=== PATIENT | male | born 1960 | race Caucasian/White ===

== ENCOUNTER → 2016-11-16 | Outpatient (CLI) | payer MEDICAID, OTHER | LOC: MW.CHIM 10:25 | PROVIDERS: ATTEND Internal Medicine | DX: D64.9 Anemia, unspecified (principal) | CPT/HCPCS: 36415; 83540; 85025 ==

== ENCOUNTER 2019-01-20 12:09 | Emergency (ER) | payer MEDICARE ==
[2019-01-20] MEDS ORDERED: Sodium Chloride 0.9% 2.5 ML Syringe FLUSH PRN (12:11)
[2019-01-20] MEDS ORDERED: Sodium Chloride 0.9% 10 ML Syringe FLUSH PRN (12:11)
--- NOTE | 2019-01-20 12:11 | EDM.PDOC ---
ED HPI GENERAL MEDICAL PROBLEM - General Chief Complaint: Trauma Stated Complaint: AMB Time Seen by Provider: 01/20/19 12:10 Source of Information: Reports: EMS History Limitations: Reports: No Limitations - History of Present Illness INITIAL COMMENTS - FREE TEXT/NARRATIVE: History of present illness: []Patient was walking down the street and tripped falling forward hitting his head and lacerating his forehead and his posterior scalp. It is unclear if he had a loss of consciousness. He brought in by EMS as a trauma alert as they believed he was on blood thinners. Review of systems: As per history of present illness and below otherwise all systems reviewed and negative. Past medical history: As per history of present illness and as reviewed below otherwise noncontributory. Surgical history: As per history of present illness and as reviewed below otherwise noncontributory. Social history: No reported history of drug or alcohol abuse. Family history: As per history of present illness and as reviewed below otherwise noncontributory. Physical exam: General: Well developed, well nourished in NAD HEENT: 1.5 cm superficial forehead laceration, normocephalic, pupils reactive, negative for conjunctival pallor or scleral icterus, mucous membranes moist, throat clear, neck supple, nontender, trachea midline. Lungs: Clear to auscultation, breath sounds equal bilaterally, chest nontender. Heart: S1S2, regular, negative for clicks, rubs, or JVD. Abdomen: NABS, Soft, nondistended, nontender. Negative for masses or hepatosplenomegaly. Negative for costovertebral tenderness. Pelvis: Stable nontender. Genitourinary: Deferred. Rectal: Deferred. Extremities: Atraumatic, negative for cords or calf pain. Neurovascular unremarkable. Neuro: Awake, alert, oriented. Cranial nerves II through XII unremarkable. Cerebellum unremarkable. Motor and sensory unremarkable throughout. Exam nonfocal. Skin:warm and dry Diagnostics: CBC, chemistry, INR, PTT, CT head and neck Therapeutics: Forehead sutured ED Course: Stable Pharmacy confirmed he is not on any blood thinners Impression: Fall with forehead laceration. Prescriptions: None Plan: Take meds as directed, follow up with your primary care physician, return to ER if symptoms worsen or change. Definitive disposition and diagnosis as appropriate pending reevaluation and review of above. Head Pain Score (Numeric/FACES): 3 - Related Data Allergies Allergy/AdvReac Type Severity Reaction Status Date / Time No Known Allergies Allergy Verified 01/20/19 12:27 Home Meds: Home Meds Chlorhexidine Gluconate [Chlorhexidine Gluconate 0.12% Rinse] 15 ml PO BID 01/20 [History] Clobetasol Propionate 1 applicful TP BID 01/20/19 [History] Levothyroxine 75 mcg PO ACBREAKFAST 01/20/19 [History] Zolpidem [Ambien] 5 mg PO BEDTIME PRN 01/20/19 [History] atorvaSTATin [Lipitor] 20 mg PO BEDTIME 01/20/19 [History] oxyCODONE HCl [Oxycodone HCl] 10 mg PO BID PRN 01/20/19 [History] Review of Systems - Review of Systems Review Of Systems: ROS reveals no pertinent complaints other than HPI. ED EXAM, GENERAL - Physical Exam Exam: See Below (The history of present illness) ED TRAUMA PROCEDURES - Laceration/Wound Repair forehead Lac/Wound Length In cm: 1.5 Appearance: Subcutaneous Distal NVT: Neuro & Vascular Intact Local Anesthesia - Lidocaine (Xylocaine): 1% Plain Local Anesthetic Volume: 2cc Skin Prep: Chlorhexidine (Hibiciens) Suture Size: 4-0 Suture Type: Nylon Drain Placement: No Sterile Dressing Applied: Nurse Complications: No Course - Vital Signs Last Recorded V/S: Last Vital Signs Temp 97.4 F 01/20/19 12:09 Pulse 111 H 01/20/19 12:09 Resp 18 01/20/19 12:09 BP 152/112 H 01/20/19 12:09 Pulse Ox 92 L 01/20/19 12:09 - Orders/Labs/Meds Orders: Active Orders 24 hr Category Date Time Status Admission Status [Patient Status] [ADT] Stat ADT 01/20/19 13:06 Active Sodium Chloride 0.9% [Saline Flush] Med 01/20/19 12:11 Active 10 ml FLUSH ASDIRECTED PRN Sodium Chloride 0.9% [Saline Flush] Med 01/20/19 12:11 Active 2.5 ml FLUSH ASDIRECTED PRN Saline Lock Insert [OM.PC] Stat Oth 01/20/19 12:11 Ordered Medication Orders Sodium Chloride (Saline Flush) 10 ml FLUSH ASDIRECTED PRN PRN Reason: Keep Vein Open Sodium Chloride (Saline Flush) 2.5 ml FLUSH ASDIRECTED PRN PRN Reason: Keep Vein Open Labs: Laboratory Tests 01/20/19 01/20/19 01/20/19 Range/Units 12:37 12:37 12:37 WBC 4.37 (4.0-11.0) K/uL RBC 3.65 L (4.50-5.90) M/uL Hgb 12.7 L (13.0-17.0) g/dL Hct 38.1 (38.0-50.0) % MCV 104.4 H (80.0-98.0) fL MCH 34.8 H (27.0-32.0) pg MCHC 33.3 (31.0-37.0) g/dL RDW Std Deviation 48.7 (28.0-62.0) fl RDW Coeff of Luisito 13 (11.0-15.0) % Plt Count 178 (150-400) K/uL MPV 9.00 (7.40-12.00) fL Neut % (Auto) 37.3 L (48.0-80.0) % Lymph % (Auto) 55.4 H (16.0-40.0) % Cavalier % (Auto) 5.9 (0.0-15.0) % Eos % (Auto) 0.5 (0.0-7.0) % Baso % (Auto) 0.9 (0.0-1.5) % Neut # (Auto) 1.6 (1.4-5.7) K/uL Lymph # (Auto) 2.4 (0.6-2.4) K/uL Cavalier # (Auto) 0.3 (0.0-0.8) K/uL Eos # (Auto) 0.0 (0.0-0.7) K/uL Baso # (Auto) 0.0 (0.0-0.1) K/uL Nucleated RBC % 0.0 /100WBC Nucleated RBCs # 0 K/uL INR 1.08 APTT 28.9 (18.6-31.3) SEC Sodium 140 (136-148) mmol/L Potassium 3.6 (3.5-5.1) mmol/L Chloride 98 (98-107) mmol/L Carbon Dioxide 26.0 (21.0-32.0) mmol/L BUN 16 (7.0-18.0) mg/dL Creatinine 0.9 (0.8-1.3) mg/dL Est Cr Clr Drug Dosing 85.05 mL/min Estimated GFR (MDRD) > 60.0 ml/min Glucose 100 (74-106) mg/dL Calcium 9.4 (8.5-10.1) mg/dL Total Bilirubin 0.5 (0.2-1.0) mg/dL AST 186 H (15-37) IU/L ALT 117 H (14-63) IU/L Alkaline Phosphatase 91 (46-116) U/L Total Protein 8.0 (6.4-8.2) g/dL Albumin 4.0 (3.4-5.0) g/dL Globulin 4.0 (2.6-4.0) g/dL Albumin/Globulin Ratio 1.0 (0.9-1.6) Meds: Medications Generic Name Dose Route Start Last Admin Trade Name Frejeanie PRN Reason Stop Dose Admin Sodium Chloride 10 ml 01/20/19 12:11 Saline Flush FLUSH ASDIRECTED PRN Keep Vein Open Sodium Chloride 2.5 ml 01/20/19 12:11 Saline Flush FLUSH ASDIRECTED PRN Keep Vein Open Discontinued Medications Generic Name Dose Route Start Last Admin Trade Name Frejeanie PRN Reason Stop Dose Admin Bacitracin 1 dose 01/20/19 12:41 01/20/19 12:50 Bacitracin Oint 1 Gm TOP 01/20/19 12:42 1 dose ONETIME ONE Administration Bacitracin Confirm 01/20/19 12:42 01/20/19 12:50 Bacitracin Oint 1 Gm Administered 01/20/19 12:43 Not Given Dose 1 dose .ROUTE .STK-MED ONE Lidocaine HCl Confirm 01/20/19 12:36 01/20/19 12:51 Xylocaine-Mpf 1% Administered 01/20/19 12:37 Not Given Dose 10 mls @ as directed .ROUTE .STK-MED ONE Lidocaine HCl 5 ml 01/20/19 12:35 01/20/19 12:51 Xylocaine-Mpf 1% INJECT 01/20/19 12:36 5 ml ONETIME ONE Administration Departure - Departure Time of Disposition: 13:51 Disposition: Home, Self-Care 01 Condition: Good Clinical Impression: Fall Qualifiers: Encounter type: initial encounter Qualified Code(s): W19.XXXA - Unspecified fall, initial encounter Forehead laceration Qualifiers: Encounter type: initial encounter Qualified Code(s): S01.81XA - Laceration without foreign body of other part of head, initial encounter Scalp laceration Qualifiers: Encounter type: initial encounter Qualified Code(s): S01.01XA - Laceration without foreign body of scalp, initial encounter - Discharge Information *PRESCRIPTION DRUG MONITORING PROGRAM REVIEWED*: No *COPY OF PRESCRIPTION DRUG MONITORING REPORT IN PATIENT ERIC: No Referrals: PCP,Unknown [Primary Care Provider] - Forms: ED Department Discharge Additional Instructions: The following information is given to patients seen in the emergency department who are being discharged to home. This information is to outline your options for follow-up care. We provide all patients seen in our emergency department with a follow-up referral. The need for follow-up, as well as the timing and circumstances, are variable depending upon the specifics of your emergency department visit. If you don't have a primary care physician on staff, we will provide you with a referral. We always advise you to contact your personal physician following an emergency department visit to inform them of the circumstance of the visit and for follow-up with them and/or the need for any referrals to a consulting specialist. The emergency department will also refer you to a specialist when appropriate. This referral assures that you have the opportunity for follow-up care with a specialist. All of these measure are taken in an effort to provide you with optimal care, which includes your follow-up. Under all circumstances we always encourage you to contact your private physician who remains a resource for coordinating your care. When calling for follow-up care, please make the office aware that this follow-up is from your recent emergency room visit. If for any reason you are refused follow-up, please contact the [facility] Emergency Department at and asked to speak to the emergency department charge nurse. Take meds as directed, follow up with your primary care physician, return to ER if symptoms worsen or change. [facility] [address] [place] [id number] - My Orders Last 24 Hours: My Active Orders 01/20/19 12:11 Sodium Chloride 0.9% [Saline Flush] 10 ml FLUSH ASDIRECTED PRN Sodium Chloride 0.9% [Saline Flush] 2.5 ml FLUSH ASDIRECTED PRN Saline Lock Insert [OM.PC] Stat 01/20/19 13:06 Admission Status [Patient Status] [ADT] Stat - Assessment/Plan Last 24 Hours: My Active Orders 01/20/19 12:11 Sodium Chloride 0.9% [Saline Flush] 10 ml FLUSH ASDIRECTED PRN Sodium Chloride 0.9% [Saline Flush] 2.5 ml FLUSH ASDIRECTED PRN Saline Lock Insert [OM.PC] Stat 01/20/19 13:06 Admission Status [Patient Status] [ADT] Stat
[2019-01-20] MEDS ORDERED: Bacitracin Oint 1 GM U/D Packet TOP ONE (12:41)
[2019-01-20] MEDS ORDERED: Bacitracin Oint 1 GM U/D Packet ONE (12:42)
[2019-01-20 12:44] VITALS: BP 152/112
--- NOTE | 2019-01-20 13:23 | CT ---
INDICATION: Trauma, fall and hit head, currently on blood thinners TECHNIQUE: CT head without contrast. COMPARISON: None available FINDINGS: The ventricles are prominent, yet in proportion to the cortical sulci consistent with generalized cerebral atrophy. Punctate areas of decreased attenuation are seen bilaterally which may represent lacunar infarcts. There is soft tissue swelling and small subgaleal hematoma over the right frontal bone. Negative for underlying acute intracranial abnormality including hemorrhage. No displaced skull fracture is seen. Negative for extra-axial fluid collection or midline shift. The basal cisterns are intact. There is minimal mucosal thickening of the ethmoid sinuses. The remainder of the visualized paranasal sinuses and mastoid air cells are clear. IMPRESSION: 1. Soft tissue swelling with a small subgaleal hematoma over the right frontal bone. Negative for underlying acute intracranial abnormality. 2. Mild generalized cerebral atrophy. Dictated by Deborah Munroe MD @ 01/20/2019 1:20:55 PM Please note that all CT scans at this facility use dose modulation, iterative reconstruction, and/or weight-based dosing when appropriate to reduce radiation dose to as low as reasonably achievable. Dictated by: Deborah Munroe MD @ 01/20/2019 13:21:09 (Electronically Signed)
--- NOTE | 2019-01-20 13:27 | CT ---
INDICATION: Fall, trauma, neck pain TECHNIQUE: CT cervical spine without contrast. COMPARISON: None available FINDINGS: There is mild straightening and slight reversal of the normal cervical lordosis, most pronounced within the lower cervical spine. This likely relates to patient positioning or muscle spasm. The vertebral body heights are otherwise maintained in good alignment. The facets are properly aligned. Negative for acute fracture. The prevertebral soft tissues are within normal limits. There is disc space narrowing at the C5-C6, C6-C7 and C7-T1 level. Anterior osteophytes are present throughout. Facet arthropathy is also present throughout, worst at the C3-C4 level where there is moderate bilateral neural foraminal narrowing. There are postsurgical changes are present along the right mandible. Biapical scarring is present. IMPRESSION: 1. Negative for acute fracture. 2. Multilevel degenerative spondylosis. Dictated by Deborah Munroe MD @ 01/20/2019 1:26:50 PM Please note that all CT scans at this facility use dose modulation, iterative reconstruction, and/or weight-based dosing when appropriate to reduce radiation dose to as low as reasonably achievable. Dictated by: Deborah Munroe MD @ 01/20/2019 13:27:01 (Electronically Signed)
[2019-01-20 13:30] LABS: CHLORIDE,CL 98 mmol/L (98-107); SODIUM,NA 140 mmol/L (136-148)
== END 2019-01-20 14:10 | disposition home or self-care (01) ==
LOC: MW.ED 12:09
DX: S01.81XA Laceration without foreign body of other part of head, initial encounter (principal); S01.01XA Laceration without foreign body of scalp, initial encounter; Z79.899 Other long term (current) drug therapy; W01.0XXA Fall on same level from slipping, tripping and stumbling without subsequent striking against object, initial encounter
CPT/HCPCS: 12011; 36415; 70450; 72125; 80053; 85025; 85610; 85730; 99284; J2001; 99283

== ENCOUNTER 2021-10-29 20:33 | Emergency (ER) | payer MEDICARE ==
[2021-10-29] MEDS ORDERED: Lactated Ringers 1,000 ML IV STA (22:49)
[2021-10-29 23:57] VITALS: BP 110/75; PULSE 76
== END 2021-10-30 00:10 | disposition home or self-care (01) ==
LOC: MW.ED 20:33
DX: K94.23 Gastrostomy malfunction (principal); E78.00 Pure hypercholesterolemia, unspecified; I10 Essential (primary) hypertension; Z79.899 Other long term (current) drug therapy
CPT/HCPCS: 43762; 74018; 99283; J7120; 99282

== ENCOUNTER 2022-02-05 13:24 | Inpatient (IN) | payer MEDICARE ==
[2022-02-05] MEDS ORDERED: Sodium Chloride 0.9% 1,000 ML IV ONE (13:42)
[2022-02-05 14:39] LABS: BLOOD UREA NITROGEN,BUN 22 mg/dL (7.0-18.0); CARBON DIOXIDE,CO2 27.8 mmol/L (21.0-32.0); CHLORIDE,CL 101 mmol/L (98-107); GLUCOSE RANDOM 93 mg/dL (74-106); POTASSIUM,K 3.2 mmol/L (3.5-5.1); SODIUM,NA 135 mmol/L (136-148)
[2022-02-05 14:45] LABS: ESTIMATED GFR > 60.0 ml/min
[2022-02-05] MEDS ORDERED: Magnesium Oxide 400 MG Tab PO ONE (14:53)
[2022-02-05] MEDS ORDERED: Potassium Chloride 20 MEQ Tab.ER PO ONE (14:53)
[2022-02-05] MEDS ORDERED: oxyCODONE 5 MG Tab PO ONE (16:45)
[2022-02-05] MEDS ORDERED: Ondansetron 4 MG Tab.DIS PO PRN (18:06)
[2022-02-05] MEDS ORDERED: Docusate Sodium 100 MG Cap PO PRN (18:06)
[2022-02-05] MEDS ORDERED: Pantoprazole 40 MG in Sodium Chloride 0.9% 10 ML IVPUSH SCH (18:30)
[2022-02-05] MEDS: atorvaSTATin 20 MG Tab PO SCH (21:47)
[2022-02-05] MEDS ORDERED: Docusate Sodium Liquid 100 MG/10 ML UD Cup PO PRN (21:58)
[2022-02-05] MEDS: Pantoprazole 40 MG in Sodium Chloride 0.9% 10 ML IVPUSH SCH (22:41)
[2022-02-06] MEDS: Acetaminophen 325 MG Tab PO PRN ×2 (00:36→21:44)
[2022-02-06 06:58] LABS: BLOOD UREA NITROGEN,BUN 21 mg/dL (7.0-18.0); CARBON DIOXIDE,CO2 25.4 mmol/L (21.0-32.0); CHLORIDE,CL 102 mmol/L (98-107); GLUCOSE RANDOM 97 mg/dL (74-106); POTASSIUM,K 3.8 mmol/L (3.5-5.1); SODIUM,NA 135 mmol/L (136-148)
[2022-02-06 07:00] LABS: ESTIMATED GFR > 60.0 ml/min
[2022-02-06] MEDS: Levothyroxine 75 MCG Tab PO SCH (07:02)
[2022-02-06] MEDS: Lactated Ringers 1,000 ML IV SCH ×2 (09:45→21:22)
[2022-02-06] MEDS ORDERED: oxyCODONE 5 MG Tab PO PRN (10:15)
[2022-02-06] MEDS ORDERED: Magnesium Sulfate/Water 2 GM in Premix Bag 1 BAG IV ONE (11:30)
[2022-02-06] MEDS: Piperacillin/Tazobactam 3.375 GM in Sodium Chloride 0.9% 50 ML IV SCH ×2 (13:20→21:15)
[2022-02-06] MEDS: oxyCODONE 5 MG Tab PO PRN (18:15)
[2022-02-06] MEDS: Enoxaparin 40 MG/0.4 ML Syringe SUBCUT SCH (18:15)
[2022-02-06] MEDS: Pantoprazole 40 MG in Sodium Chloride 0.9% 10 ML IVPUSH SCH (21:16)
[2022-02-06] MEDS: atorvaSTATin 20 MG Tab PO SCH (21:16)
[2022-02-07] MEDS: Piperacillin/Tazobactam 3.375 GM in Sodium Chloride 0.9% 50 ML IV SCH ×3 (03:48→20:55)
[2022-02-07 05:58] LABS: BLOOD UREA NITROGEN,BUN 19 mg/dL (7.0-18.0); CARBON DIOXIDE,CO2 26.8 mmol/L (21.0-32.0); CHLORIDE,CL 103 mmol/L (98-107); GLUCOSE RANDOM 100 mg/dL (74-106); POTASSIUM,K 3.4 mmol/L (3.5-5.1); SODIUM,NA 137 mmol/L (136-148)
[2022-02-07 06:14] LABS: ESTIMATED GFR > 60.0 ml/min
[2022-02-07] MEDS: Levothyroxine 75 MCG Tab PO SCH (08:42)
[2022-02-07] MEDS: oxyCODONE 5 MG Tab PO PRN ×3 (08:43→21:53)
[2022-02-07] MEDS: Lactated Ringers 1,000 ML IV SCH ×2 (10:47→17:27)
[2022-02-07] MEDS ORDERED: Magnesium Sulfate/Water 2 GM in Premix Bag 1 BAG IV ONE (10:52)
[2022-02-07] MEDS ORDERED: Potassium Chloride 40 MEQ in Dextrose 5%-Lactated Ringers 1,000 ML IV ONE (11:00)
[2022-02-07] MEDS ORDERED: Iron Sucrose Complex 100 MG in Sodium Chloride 0.9% 100 ML IV ONE (11:15)
[2022-02-07] MEDS: Pantoprazole 40 MG in Sodium Chloride 0.9% 10 ML IVPUSH SCH (21:03)
[2022-02-07] MEDS: Enoxaparin 40 MG/0.4 ML Syringe SUBCUT SCH (21:03)
[2022-02-07] MEDS: atorvaSTATin 20 MG Tab PO SCH (21:04)
[2022-02-08] MEDS: oxyCODONE 5 MG Tab PO PRN ×3 (03:02→18:40)
[2022-02-08] MEDS: Lactated Ringers 1,000 ML IV SCH ×2 (03:09→18:40)
[2022-02-08] MEDS: Piperacillin/Tazobactam 3.375 GM in Sodium Chloride 0.9% 50 ML IV SCH ×3 (04:29→21:25)
[2022-02-08] MEDS: Levothyroxine 75 MCG Tab PO SCH (07:44)
[2022-02-08 07:58] LABS: BLOOD UREA NITROGEN,BUN 18 mg/dL (7.0-18.0); CARBON DIOXIDE,CO2 27.9 mmol/L (21.0-32.0); CHLORIDE,CL 101 mmol/L (98-107); GLUCOSE RANDOM 72 mg/dL (74-106); POTASSIUM,K 3.9 mmol/L (3.5-5.1); SODIUM,NA 134 mmol/L (136-148)
[2022-02-08 08:01] LABS: ESTIMATED GFR > 60.0 ml/min
[2022-02-08] MEDS ORDERED: Magnesium Sulfate/Water 2 GM/50 ML Premix Bag IV ONE (15:19)
[2022-02-08] MEDS ORDERED: Magnesium Sulfate/Water 2 GM in Premix Bag 1 BAG IV ONE (15:30)
[2022-02-08] MEDS: atorvaSTATin 20 MG Tab PO SCH (21:25)
[2022-02-08] MEDS: Pantoprazole 40 MG in Sodium Chloride 0.9% 10 ML IVPUSH SCH (21:25)
[2022-02-08] MEDS: Enoxaparin 40 MG/0.4 ML Syringe SUBCUT SCH (21:25)
[2022-02-09] MEDS: oxyCODONE 5 MG Tab PO PRN ×2 (00:48→06:44)
[2022-02-09] MEDS: Lactated Ringers 1,000 ML IV SCH ×2 (03:06→10:39)
[2022-02-09] MEDS: Piperacillin/Tazobactam 3.375 GM in Sodium Chloride 0.9% 50 ML IV SCH ×3 (04:23→19:54)
[2022-02-09] MEDS: Levothyroxine 75 MCG Tab PO SCH (06:43)
[2022-02-09 07:07] LABS: BLOOD UREA NITROGEN,BUN 17 mg/dL (7.0-18.0); CARBON DIOXIDE,CO2 26.1 mmol/L (21.0-32.0); CHLORIDE,CL 102 mmol/L (98-107); GLUCOSE RANDOM 87 mg/dL (74-106); POTASSIUM,K 3.4 mmol/L (3.5-5.1); SODIUM,NA 136 mmol/L (136-148)
[2022-02-09 07:09] LABS: ESTIMATED GFR > 60.0 ml/min
[2022-02-09] MEDS ORDERED: Magnesium Sulfate/Water 2 GM in Premix Bag 1 BAG IV ONE (08:06)
[2022-02-09] MEDS ORDERED: Potassium Chloride 10% 20 MEQ/15 ML Soln 30 ML UD Cup PO ONE (08:06)
[2022-02-09] MEDS ORDERED: Sodium Chloride 0.9% 10 ML Syringe FLUSH PRN (08:08)
[2022-02-09] MEDS ORDERED: Sodium Chloride 0.9% 2.5 ML Syringe FLUSH PRN (08:08)
[2022-02-09] MEDS ORDERED: Potassium Chloride 10% 20 MEQ/15 ML Soln 30 ML UD Cup GTUBE ONE (10:30)
[2022-02-09] MEDS ORDERED: Acetaminophen 325 MG/10.15 ML ML GTUBE PRN (11:02)
[2022-02-09] MEDS: oxyCODONE 5 MG/5 ML Cup GTUBE PRN ×2 (12:58→19:54)
[2022-02-09] MEDS: CHLORHEXIDINE GLUCONATE PO SCH ×2 (18:01→20:16)
[2022-02-09] MEDS: Enoxaparin 40 MG/0.4 ML Syringe SUBCUT SCH (20:01)
[2022-02-09] MEDS: atorvaSTATin 20 MG Tab PEGTUBE SCH (20:02)
[2022-02-09] MEDS: Pantoprazole 40 MG in Sodium Chloride 0.9% 10 ML IVPUSH SCH (21:09)
[2022-02-10] MEDS: Morphine 2 MG/ML SYRINGE IVPUSH PRN ×4 (00:46→21:11)
[2022-02-10] MEDS: Lactated Ringers 1,000 ML IV SCH (00:47)
[2022-02-10] MEDS: oxyCODONE 5 MG/5 ML Cup GTUBE PRN ×3 (02:38→18:20)
[2022-02-10] MEDS: Piperacillin/Tazobactam 3.375 GM in Sodium Chloride 0.9% 50 ML IV SCH ×3 (05:31→21:10)
[2022-02-10 07:11] LABS: BLOOD UREA NITROGEN,BUN 17 mg/dL (7.0-18.0); CARBON DIOXIDE,CO2 27.7 mmol/L (21.0-32.0); CHLORIDE,CL 101 mmol/L (98-107); GLUCOSE RANDOM 83 mg/dL (74-106); POTASSIUM,K 3.5 mmol/L (3.5-5.1); SODIUM,NA 135 mmol/L (136-148)
[2022-02-10 07:18] LABS: ESTIMATED GFR > 60.0 ml/min
[2022-02-10] MEDS ORDERED: Levothyroxine 75 MCG Tab GTUBE SCH (07:30)
[2022-02-10] MEDS: Multivitamin Tab SCH (09:02)
[2022-02-10] MEDS: CHLORHEXIDINE GLUCONATE PO SCH ×2 (09:06→21:13)
[2022-02-10] MEDS: atorvaSTATin 20 MG Tab PEGTUBE SCH (21:10)
[2022-02-10] MEDS: Pantoprazole 40 MG in Sodium Chloride 0.9% 10 ML IVPUSH SCH (21:11)
[2022-02-10] MEDS: Enoxaparin 40 MG/0.4 ML Syringe SUBCUT SCH (21:11)
[2022-02-11] MEDS: oxyCODONE 5 MG/5 ML Cup GTUBE PRN ×4 (00:20→21:00)
[2022-02-11] MEDS: Morphine 2 MG/ML SYRINGE IVPUSH PRN ×2 (03:40→16:16)
[2022-02-11] MEDS: Piperacillin/Tazobactam 3.375 GM in Sodium Chloride 0.9% 50 ML IV SCH ×3 (03:47→21:01)
[2022-02-11 06:02] LABS: BLOOD UREA NITROGEN,BUN 14 mg/dL (7.0-18.0); CHLORIDE,CL 102 mmol/L (98-107); GLUCOSE RANDOM 106 mg/dL (74-106); POTASSIUM,K 3.2 mmol/L (3.5-5.1); SODIUM,NA 137 mmol/L (136-148)
[2022-02-11 06:03] LABS: ESTIMATED GFR > 60.0 ml/min
[2022-02-11] MEDS: Levothyroxine 125 MCG Tab PO SCH (06:32)
[2022-02-11] MEDS ORDERED: Magnesium Sulfate/Water 4 GM in Premix Bag 1 BAG IV ONE (08:00)
[2022-02-11] MEDS: Multivitamin Tab SCH (09:23)
[2022-02-11] MEDS: Potassium Chloride 10% 20 MEQ/15 ML Soln 30 ML UD Cup PO SCH ×2 (09:26→21:01)
[2022-02-11] MEDS: CHLORHEXIDINE GLUCONATE PO SCH ×2 (09:26→21:05)
[2022-02-11] MEDS: atorvaSTATin 20 MG Tab PEGTUBE SCH (21:00)
[2022-02-11] MEDS: Enoxaparin 40 MG/0.4 ML Syringe SUBCUT SCH (21:01)
[2022-02-11] MEDS: Pantoprazole 40 MG in Sodium Chloride 0.9% 10 ML IVPUSH SCH (21:01)
[2022-02-12] MEDS: Morphine 2 MG/ML SYRINGE IVPUSH PRN ×2 (02:01→17:07)
[2022-02-12] MEDS: oxyCODONE 5 MG/5 ML Cup GTUBE PRN ×3 (03:02→18:57)
[2022-02-12] MEDS: Piperacillin/Tazobactam 3.375 GM in Sodium Chloride 0.9% 50 ML IV SCH ×3 (04:36→21:31)
[2022-02-12] MEDS ORDERED: oxyCODONE 5 MG/5 ML Cup GTUBE ONE ×2 (05:15→22:22)
[2022-02-12] MEDS: Levothyroxine 125 MCG Tab PO SCH (06:47)
[2022-02-12 07:43] LABS: BLOOD UREA NITROGEN,BUN 10 mg/dL (7.0-18.0); CARBON DIOXIDE,CO2 26.7 mmol/L (21.0-32.0); CHLORIDE,CL 102 mmol/L (98-107); GLUCOSE RANDOM 93 mg/dL (74-106); POTASSIUM,K 4.1 mmol/L (3.5-5.1); SODIUM,NA 136 mmol/L (136-148)
[2022-02-12 07:44] LABS: ESTIMATED GFR > 60.0 ml/min
[2022-02-12] MEDS: Multivitamin Tab SCH (09:25)
[2022-02-12] MEDS: CHLORHEXIDINE GLUCONATE PO SCH ×2 (09:26→21:56)
[2022-02-12] MEDS ORDERED: Sodium Chloride 0.9% 1,000 ML IV ONE (09:45)
[2022-02-12] MEDS: Albuterol/Ipratropium 3.0-0.5 MG/3 ML Neb Soln NEB PRN ×2 (12:23→23:10)
[2022-02-12] MEDS: atorvaSTATin 20 MG Tab PEGTUBE SCH (21:32)
[2022-02-12] MEDS: Pantoprazole 40 MG in Sodium Chloride 0.9% 10 ML IVPUSH SCH (21:32)
[2022-02-12] MEDS: Enoxaparin 40 MG/0.4 ML Syringe SUBCUT SCH (21:32)
[2022-02-13] MEDS: Piperacillin/Tazobactam 3.375 GM in Sodium Chloride 0.9% 50 ML IV SCH ×3 (04:04→21:23)
[2022-02-13] MEDS: Morphine 2 MG/ML SYRINGE IVPUSH PRN ×2 (05:18→14:10)
[2022-02-13] MEDS: Levothyroxine 125 MCG Tab PO SCH (06:52)
[2022-02-13 07:11] LABS: BLOOD UREA NITROGEN,BUN 8 mg/dL (7.0-18.0); CARBON DIOXIDE,CO2 26.5 mmol/L (21.0-32.0); CHLORIDE,CL 101 mmol/L (98-107); GLUCOSE RANDOM 92 mg/dL (74-106); POTASSIUM,K 3.8 mmol/L (3.5-5.1); SODIUM,NA 135 mmol/L (136-148)
[2022-02-13 07:29] LABS: ESTIMATED GFR > 60.0 ml/min
[2022-02-13] MEDS: CHLORHEXIDINE GLUCONATE PO SCH ×2 (09:30→21:25)
[2022-02-13] MEDS: Multivitamin Tab SCH (09:30)
[2022-02-13] MEDS: oxyCODONE 5 MG/5 ML Cup GTUBE PRN ×2 (09:40→19:41)
[2022-02-13] MEDS: Albuterol/Ipratropium 3.0-0.5 MG/3 ML Neb Soln NEB PRN ×4 (10:03→23:14)
[2022-02-13] MEDS ORDERED: Magnesium Sulfate/Water 4 GM in Premix Bag 1 BAG IV ONE (17:28)
[2022-02-13] MEDS ORDERED: Magnesium Oxide 400 MG Tab PO SCH (17:30)
[2022-02-13] MEDS: Pantoprazole 40 MG in Sodium Chloride 0.9% 10 ML IVPUSH SCH (21:18)
[2022-02-13] MEDS: atorvaSTATin 20 MG Tab PEGTUBE SCH (21:25)
[2022-02-13] MEDS: Enoxaparin 40 MG/0.4 ML Syringe SUBCUT SCH (21:25)
[2022-02-14] MEDS: oxyCODONE 5 MG/5 ML Cup GTUBE PRN ×3 (03:44→20:39)
[2022-02-14] MEDS: Albuterol/Ipratropium 3.0-0.5 MG/3 ML Neb Soln NEB PRN ×4 (03:55→19:32)
[2022-02-14] MEDS ORDERED: traZODone 50 MG Tab PO ONE (04:30)
[2022-02-14] MEDS: Piperacillin/Tazobactam 3.375 GM in Sodium Chloride 0.9% 50 ML IV SCH ×3 (05:00→20:27)
[2022-02-14 06:41] LABS: BLOOD UREA NITROGEN,BUN 9 mg/dL (7.0-18.0); CARBON DIOXIDE,CO2 29.1 mmol/L (21.0-32.0); CHLORIDE,CL 98 mmol/L (98-107); GLUCOSE RANDOM 84 mg/dL (74-106); POTASSIUM,K 3.4 mmol/L (3.5-5.1); SODIUM,NA 134 mmol/L (136-148)
[2022-02-14] MEDS: Levothyroxine 125 MCG Tab PO SCH (06:45)
[2022-02-14 06:52] LABS: ESTIMATED GFR > 60.0 ml/min
[2022-02-14] MEDS: Multivitamin Tab SCH (08:26)
[2022-02-14] MEDS: CHLORHEXIDINE GLUCONATE PO SCH ×2 (08:26→22:40)
[2022-02-14] MEDS: Morphine 2 MG/ML SYRINGE IVPUSH PRN ×2 (10:42→22:41)
[2022-02-14] MEDS: Pantoprazole 40 MG in Sodium Chloride 0.9% 10 ML IVPUSH SCH (21:28)
[2022-02-14] MEDS: atorvaSTATin 20 MG Tab PEGTUBE SCH (21:34)
[2022-02-14] MEDS: Enoxaparin 40 MG/0.4 ML Syringe SUBCUT SCH (22:40)
[2022-02-15] MEDS: oxyCODONE 5 MG/5 ML Cup GTUBE PRN ×2 (02:44→09:44)
[2022-02-15] MEDS: traZODone 50 MG Tab PO SCH ×2 (02:44→20:06)
[2022-02-15] MEDS: Piperacillin/Tazobactam 3.375 GM in Sodium Chloride 0.9% 50 ML IV SCH (04:15)
[2022-02-15] MEDS: Levothyroxine 125 MCG Tab PO SCH (06:34)
[2022-02-15 06:44] LABS: BLOOD UREA NITROGEN,BUN 8 mg/dL (7.0-18.0); CARBON DIOXIDE,CO2 28.9 mmol/L (21.0-32.0); GLUCOSE RANDOM 83 mg/dL (74-106)
[2022-02-15 06:52] LABS: CHLORIDE,CL 100 mmol/L (98-107); ESTIMATED GFR > 60.0 ml/min; POTASSIUM,K 3.4 mmol/L (3.5-5.1); SODIUM,NA 135 mmol/L (136-148)
[2022-02-15] MEDS ORDERED: Potassium Chloride 10% 20 MEQ/15 ML Soln 30 ML UD Cup GTUBE ONE (08:05)
[2022-02-15] MEDS: Multivitamin Tab SCH (09:42)
[2022-02-15] MEDS: CHLORHEXIDINE GLUCONATE PO SCH ×2 (09:43→20:06)
[2022-02-15] MEDS ORDERED: ferumoxytoL 510 MG in Sodium Chloride 0.9% 100 ML IV ONE (10:30)
[2022-02-15] MEDS: Morphine 2 MG/ML SYRINGE IVPUSH PRN ×2 (11:27→20:07)
[2022-02-15] MEDS: atorvaSTATin 20 MG Tab PEGTUBE SCH (20:05)
[2022-02-15] MEDS: Albuterol/Ipratropium 3.0-0.5 MG/3 ML Neb Soln NEB PRN (20:09)
[2022-02-15] MEDS: Pantoprazole 40 MG in Sodium Chloride 0.9% 10 ML IVPUSH SCH (22:30)
[2022-02-15] MEDS: Enoxaparin 40 MG/0.4 ML Syringe SUBCUT SCH (22:31)
[2022-02-16] MEDS: oxyCODONE 5 MG/5 ML Cup GTUBE PRN ×4 (00:39→20:47)
[2022-02-16 07:48] LABS: BLOOD UREA NITROGEN,BUN 9 mg/dL (7.0-18.0); CARBON DIOXIDE,CO2 26.6 mmol/L (21.0-32.0); CHLORIDE,CL 101 mmol/L (98-107); GLUCOSE RANDOM 70 mg/dL (74-106); POTASSIUM,K 3.8 mmol/L (3.5-5.1); SODIUM,NA 136 mmol/L (136-148)
[2022-02-16 07:49] LABS: ESTIMATED GFR > 60.0 ml/min
[2022-02-16] MEDS ORDERED: Magnesium Sulfate/Water 2 GM in Premix Bag 1 BAG IV ONE (08:00)
[2022-02-16] MEDS: Levothyroxine 125 MCG Tab PO SCH (08:15)
[2022-02-16] MEDS: Multivitamin Tab SCH (08:15)
[2022-02-16] MEDS: CHLORHEXIDINE GLUCONATE PO SCH ×2 (08:16→20:47)
[2022-02-16] MEDS: Albuterol/Ipratropium 3.0-0.5 MG/3 ML Neb Soln NEB PRN ×2 (08:46→20:47)
[2022-02-16] MEDS: Enoxaparin 40 MG/0.4 ML Syringe SUBCUT SCH (20:47)
[2022-02-16] MEDS: traZODone 50 MG Tab PO SCH (20:47)
[2022-02-16] MEDS: atorvaSTATin 20 MG Tab PEGTUBE SCH (20:47)
[2022-02-16] MEDS: Pantoprazole 40 MG in Sodium Chloride 0.9% 10 ML IVPUSH SCH (21:06)
[2022-02-16] MEDS: Morphine 2 MG/ML SYRINGE IVPUSH PRN (23:59)
[2022-02-17] MEDS: oxyCODONE 5 MG/5 ML Cup GTUBE PRN ×4 (04:08→21:17)
[2022-02-17] MEDS: Albuterol/Ipratropium 3.0-0.5 MG/3 ML Neb Soln NEB PRN ×4 (04:19→21:17)
[2022-02-17] MEDS: Morphine 2 MG/ML SYRINGE IVPUSH PRN (06:46)
[2022-02-17] MEDS: Levothyroxine 125 MCG Tab PO SCH (06:47)
[2022-02-17 07:20] LABS: BLOOD UREA NITROGEN,BUN 8 mg/dL (7.0-18.0); CARBON DIOXIDE,CO2 29.4 mmol/L (21.0-32.0); CHLORIDE,CL 101 mmol/L (98-107); GLUCOSE RANDOM 90 mg/dL (74-106); POTASSIUM,K 3.6 mmol/L (3.5-5.1); SODIUM,NA 135 mmol/L (136-148)
[2022-02-17 07:21] LABS: ESTIMATED GFR > 60.0 ml/min
[2022-02-17] MEDS ORDERED: Magnesium Sulfate/Water 2 GM in Premix Bag 1 BAG IV ONE (07:58)
[2022-02-17] MEDS: Multivitamin Tab SCH (08:54)
[2022-02-17] MEDS: CHLORHEXIDINE GLUCONATE PO SCH ×2 (08:55→21:18)
[2022-02-17] MEDS: traZODone 50 MG Tab PO SCH (21:16)
[2022-02-17] MEDS: atorvaSTATin 20 MG Tab PEGTUBE SCH (21:16)
[2022-02-17] MEDS: Pantoprazole 40 MG in Sodium Chloride 0.9% 10 ML IVPUSH SCH (21:17)
[2022-02-17] MEDS: Enoxaparin 40 MG/0.4 ML Syringe SUBCUT SCH (21:17)
[2022-02-18] MEDS: Albuterol/Ipratropium 3.0-0.5 MG/3 ML Neb Soln NEB PRN ×3 (04:02→19:24)
[2022-02-18] MEDS: oxyCODONE 5 MG/5 ML Cup GTUBE PRN ×4 (04:02→20:45)
[2022-02-18] MEDS: Levothyroxine 125 MCG Tab PO SCH (06:46)
[2022-02-18 07:13] LABS: BLOOD UREA NITROGEN,BUN 9 mg/dL (7.0-18.0); CARBON DIOXIDE,CO2 31.1 mmol/L (21.0-32.0); CHLORIDE,CL 100 mmol/L (98-107); GLUCOSE RANDOM 85 mg/dL (74-106); POTASSIUM,K 3.5 mmol/L (3.5-5.1); SODIUM,NA 135 mmol/L (136-148)
[2022-02-18 07:18] LABS: ESTIMATED GFR > 60.0 ml/min
[2022-02-18] MEDS ORDERED: Magnesium Sulfate/Water 2 GM in Premix Bag 1 BAG IV ONE (07:56)
[2022-02-18] MEDS: Magnesium Oxide 400 MG Tab PO SCH (09:18)
[2022-02-18] MEDS: Multivitamin Tab SCH (09:18)
[2022-02-18] MEDS: CHLORHEXIDINE GLUCONATE PO SCH ×2 (09:19→20:53)
[2022-02-18] MEDS ORDERED: Acetaminophen 325 MG/10.15 ML ML GTUBE PRN (10:24)
[2022-02-18] MEDS: traZODone 50 MG Tab PO SCH (20:46)
[2022-02-18] MEDS: atorvaSTATin 20 MG Tab PEGTUBE SCH (20:47)
[2022-02-18] MEDS: Enoxaparin 40 MG/0.4 ML Syringe SUBCUT SCH (20:49)
[2022-02-18] MEDS: Pantoprazole 40 MG in Sodium Chloride 0.9% 10 ML IVPUSH SCH ×2 (20:50→21:00)
[2022-02-19] MEDS: oxyCODONE 5 MG/5 ML Cup GTUBE PRN ×5 (01:32→19:03)
[2022-02-19] MEDS: Albuterol/Ipratropium 3.0-0.5 MG/3 ML Neb Soln NEB PRN ×4 (02:55→19:04)
[2022-02-19] MEDS: Levothyroxine 125 MCG Tab PO SCH ×2 (06:09→09:17)
[2022-02-19 06:13] LABS: BLOOD UREA NITROGEN,BUN 9 mg/dL (7.0-18.0); CARBON DIOXIDE,CO2 31.2 mmol/L (21.0-32.0); CHLORIDE,CL 100 mmol/L (98-107); GLUCOSE RANDOM 81 mg/dL (74-106); POTASSIUM,K 3.5 mmol/L (3.5-5.1); SODIUM,NA 136 mmol/L (136-148)
[2022-02-19 06:15] LABS: ESTIMATED GFR > 60.0 ml/min
[2022-02-19] MEDS: Magnesium Oxide 400 MG Tab PO SCH (09:18)
[2022-02-19] MEDS: Multivitamin Tab SCH (09:18)
[2022-02-19] MEDS: CHLORHEXIDINE GLUCONATE PO SCH ×2 (09:19→21:21)
[2022-02-19] MEDS: Enoxaparin 40 MG/0.4 ML Syringe SUBCUT SCH (21:21)
[2022-02-19] MEDS: atorvaSTATin 20 MG Tab PEGTUBE SCH (21:21)
[2022-02-19] MEDS: traZODone 50 MG Tab PO SCH (21:22)
[2022-02-19] MEDS: Pantoprazole 40 MG in Sodium Chloride 0.9% 10 ML IVPUSH SCH (21:22)
[2022-02-20] MEDS: oxyCODONE 5 MG/5 ML Cup GTUBE PRN ×5 (00:11→19:00)
[2022-02-20] MEDS: Levothyroxine 125 MCG Tab PO SCH (06:49)
[2022-02-20 08:00] LABS: BLOOD UREA NITROGEN,BUN 11 mg/dL (7.0-18.0); CARBON DIOXIDE,CO2 31.1 mmol/L (21.0-32.0); CHLORIDE,CL 99 mmol/L (98-107); GLUCOSE RANDOM 92 mg/dL (74-106); POTASSIUM,K 3.7 mmol/L (3.5-5.1); SODIUM,NA 136 mmol/L (136-148)
[2022-02-20 08:02] LABS: ESTIMATED GFR > 60.0 ml/min
[2022-02-20] MEDS: Albuterol/Ipratropium 3.0-0.5 MG/3 ML Neb Soln NEB PRN ×2 (10:05→19:19)
[2022-02-20] MEDS: CHLORHEXIDINE GLUCONATE PO SCH ×2 (10:05→21:12)
[2022-02-20] MEDS: Multivitamin Tab SCH (10:05)
[2022-02-20] MEDS: Magnesium Oxide 400 MG Tab PO SCH (10:05)
[2022-02-20] MEDS ORDERED: Magnesium Sulfate/Water 2 GM in Premix Bag 1 BAG IV ONE (19:53)
[2022-02-20] MEDS: traZODone 50 MG Tab PO SCH (21:11)
[2022-02-20] MEDS: atorvaSTATin 20 MG Tab PEGTUBE SCH (21:11)
[2022-02-20] MEDS: Enoxaparin 40 MG/0.4 ML Syringe SUBCUT SCH (21:11)
[2022-02-20] MEDS: Pantoprazole 40 MG in Sodium Chloride 0.9% 10 ML IVPUSH SCH (21:12)
[2022-02-21] MEDS: oxyCODONE 5 MG/5 ML Cup GTUBE PRN ×4 (05:34→21:05)
[2022-02-21 07:41] LABS: BLOOD UREA NITROGEN,BUN 12 mg/dL (7.0-18.0); CARBON DIOXIDE,CO2 33.3 mmol/L (21.0-32.0); CHLORIDE,CL 99 mmol/L (98-107); GLUCOSE RANDOM 93 mg/dL (74-106); POTASSIUM,K 3.7 mmol/L (3.5-5.1); SODIUM,NA 134 mmol/L (136-148)
[2022-02-21] MEDS: Levothyroxine 125 MCG Tab PO SCH (07:46)
[2022-02-21 07:47] LABS: ESTIMATED GFR > 60.0 ml/min
[2022-02-21] MEDS: CHLORHEXIDINE GLUCONATE PO SCH ×2 (08:00→21:21)
[2022-02-21] MEDS: Multivitamin Tab SCH (08:00)
[2022-02-21] MEDS: Magnesium Oxide 400 MG Tab PO SCH (08:00)
[2022-02-21] MEDS: Albuterol/Ipratropium 3.0-0.5 MG/3 ML Neb Soln NEB PRN ×2 (15:05→20:49)
[2022-02-21] MEDS: traZODone 50 MG Tab PO SCH (21:04)
[2022-02-21] MEDS: Enoxaparin 40 MG/0.4 ML Syringe SUBCUT SCH (21:04)
[2022-02-21] MEDS: atorvaSTATin 20 MG Tab PEGTUBE SCH (21:05)
[2022-02-21] MEDS: Pantoprazole 40 MG in Sodium Chloride 0.9% 10 ML IVPUSH SCH (21:05)
[2022-02-22] MEDS: oxyCODONE 5 MG/5 ML Cup GTUBE PRN ×4 (06:12→23:50)
[2022-02-22] MEDS: Levothyroxine 125 MCG Tab PO SCH (06:29)
[2022-02-22] MEDS: Albuterol/Ipratropium 3.0-0.5 MG/3 ML Neb Soln NEB PRN ×3 (06:34→23:50)
[2022-02-22] MEDS: Magnesium Oxide 400 MG Tab PO SCH (09:22)
[2022-02-22] MEDS: CHLORHEXIDINE GLUCONATE PO SCH ×2 (09:22→21:47)
[2022-02-22] MEDS: Multivitamin Tab SCH (09:22)
[2022-02-22 10:02] LABS: BLOOD UREA NITROGEN,BUN 13 mg/dL (7.0-18.0); CARBON DIOXIDE,CO2 30.3 mmol/L (21.0-32.0); CHLORIDE,CL 98 mmol/L (98-107); GLUCOSE RANDOM 86 mg/dL (74-106); POTASSIUM,K 3.7 mmol/L (3.5-5.1); SODIUM,NA 133 mmol/L (136-148)
[2022-02-22 10:03] LABS: ESTIMATED GFR > 60.0 ml/min
[2022-02-22] MEDS ORDERED: Magnesium Sulfate/Water 4 GM in Premix Bag 1 BAG IV ONE (10:25)
[2022-02-22] MEDS: Docusate Sodium Liquid 100 MG/10 ML UD Cup GTUBE PRN (10:59)
[2022-02-22] MEDS: traZODone 50 MG Tab PO SCH (21:19)
[2022-02-22] MEDS: Enoxaparin 40 MG/0.4 ML Syringe SUBCUT SCH (21:19)
[2022-02-22] MEDS: atorvaSTATin 20 MG Tab PEGTUBE SCH (21:19)
[2022-02-22] MEDS: Pantoprazole 40 MG in Sodium Chloride 0.9% 10 ML IVPUSH SCH (21:20)
[2022-02-23] MEDS: oxyCODONE 5 MG/5 ML Cup GTUBE PRN ×4 (04:17→20:59)
[2022-02-23] MEDS: Levothyroxine 125 MCG Tab PO SCH (06:34)
[2022-02-23 07:51] LABS: BLOOD UREA NITROGEN,BUN 12 mg/dL (7.0-18.0); CARBON DIOXIDE,CO2 32.3 mmol/L (21.0-32.0); CHLORIDE,CL 98 mmol/L (98-107); ESTIMATED GFR > 60.0 ml/min; GLUCOSE RANDOM 88 mg/dL (74-106); POTASSIUM,K 3.5 mmol/L (3.5-5.1); SODIUM,NA 135 mmol/L (136-148)
[2022-02-23] MEDS: CHLORHEXIDINE GLUCONATE PO SCH ×2 (09:01→20:24)
[2022-02-23] MEDS: Multivitamin Tab SCH (09:01)
[2022-02-23] MEDS ORDERED: Iopamidol 755 MG/ML 500 ML Multipack Bottle IVPUSH STA (10:40)
[2022-02-23] MEDS: Piperacillin/Tazobactam 3.375 GM in Sodium Chloride 0.9% 50 ML IV SCH ×3 (11:13→22:37)
[2022-02-23] MEDS: Azithromycin 500 MG in Sodium Chloride 0.9% 250 ML IV SCH (11:58)
[2022-02-23] MEDS ORDERED: Polyethylene Glycol 3350 Powder 17 GM Packet GTUBE SCH (15:45)
[2022-02-23] MEDS: Docusate Sodium Liquid 100 MG/10 ML UD Cup GTUBE PRN (16:02)
[2022-02-23] MEDS: traZODone 50 MG Tab PO SCH (20:23)
[2022-02-23] MEDS: atorvaSTATin 20 MG Tab PEGTUBE SCH (20:24)
[2022-02-23] MEDS: Enoxaparin 40 MG/0.4 ML Syringe SUBCUT SCH (20:24)
[2022-02-23] MEDS: Pantoprazole 40 MG in Sodium Chloride 0.9% 10 ML IVPUSH SCH (22:36)
[2022-02-24] MEDS: oxyCODONE 5 MG/5 ML Cup GTUBE PRN ×6 (01:16→23:04)
[2022-02-24] MEDS: Piperacillin/Tazobactam 3.375 GM in Sodium Chloride 0.9% 50 ML IV SCH ×4 (04:37→22:58)
[2022-02-24] MEDS: Levothyroxine 125 MCG Tab PO SCH (06:40)
[2022-02-24 07:09] LABS: CARBON DIOXIDE,CO2 33.3 mmol/L (21.0-32.0); POTASSIUM,K 3.9 mmol/L (3.5-5.1)
[2022-02-24] MEDS ORDERED: Polyethylene Glycol 3350 Powder 17 GM Packet GTUBE PRN (09:00)
[2022-02-24] MEDS: Multivitamin Tab SCH (09:05)
[2022-02-24] MEDS: Azithromycin 500 MG in Sodium Chloride 0.9% 250 ML IV SCH (09:07)
[2022-02-24] MEDS: CHLORHEXIDINE GLUCONATE PO SCH ×2 (09:08→21:11)
[2022-02-24] MEDS: Albuterol/Ipratropium 3.0-0.5 MG/3 ML Neb Soln NEB PRN (13:49)
[2022-02-24] MEDS: traZODone 50 MG Tab PO SCH (21:10)
[2022-02-24] MEDS: atorvaSTATin 20 MG Tab PEGTUBE SCH (21:10)
[2022-02-24] MEDS: Enoxaparin 40 MG/0.4 ML Syringe SUBCUT SCH (21:10)
[2022-02-24] MEDS: Pantoprazole 40 MG in Sodium Chloride 0.9% 10 ML IVPUSH SCH (21:11)
[2022-02-25] MEDS: Albuterol/Ipratropium 3.0-0.5 MG/3 ML Neb Soln NEB PRN ×4 (00:34→21:49)
[2022-02-25] MEDS: Piperacillin/Tazobactam 3.375 GM in Sodium Chloride 0.9% 50 ML IV SCH ×4 (04:57→22:00)
[2022-02-25] MEDS: Levothyroxine 125 MCG Tab PO SCH (06:31)
[2022-02-25 07:02] LABS: POTASSIUM,K 4.1 mmol/L (3.5-5.1)
[2022-02-25] MEDS ORDERED: Magnesium Sulfate/Water 2 GM in Premix Bag 1 BAG IV ONE (08:15)
[2022-02-25] MEDS: Multivitamin Tab SCH (09:03)
[2022-02-25] MEDS: oxyCODONE 5 MG/5 ML Cup GTUBE PRN ×4 (09:03→22:15)
[2022-02-25] MEDS: CHLORHEXIDINE GLUCONATE PO SCH ×2 (09:07→22:16)
[2022-02-25] MEDS: Azithromycin 500 MG in Sodium Chloride 0.9% 250 ML IV SCH (10:30)
[2022-02-25] MEDS: atorvaSTATin 20 MG Tab PEGTUBE SCH (21:49)
[2022-02-25] MEDS: Enoxaparin 40 MG/0.4 ML Syringe SUBCUT SCH (21:49)
[2022-02-25] MEDS: traZODone 50 MG Tab PO SCH (21:49)
[2022-02-26] MEDS: oxyCODONE 5 MG/5 ML Cup GTUBE PRN ×5 (05:31→22:30)
[2022-02-26] MEDS: Piperacillin/Tazobactam 3.375 GM in Sodium Chloride 0.9% 50 ML IV SCH ×4 (05:31→22:30)
[2022-02-26] MEDS: Albuterol/Ipratropium 3.0-0.5 MG/3 ML Neb Soln NEB PRN (05:32)
[2022-02-26 05:47] LABS: CARBON DIOXIDE,CO2 34.8 mmol/L (21.0-32.0); POTASSIUM,K 4.1 mmol/L (3.5-5.1)
[2022-02-26] MEDS: Levothyroxine 125 MCG Tab PO SCH (07:08)
[2022-02-26] MEDS: Pantoprazole 40 MG Tab.CR SCH (07:08)
[2022-02-26] MEDS: Multivitamin Tab SCH (09:10)
[2022-02-26] MEDS: Azithromycin 500 MG in Sodium Chloride 0.9% 250 ML IV SCH (09:11)
[2022-02-26] MEDS: CHLORHEXIDINE GLUCONATE PO SCH ×2 (09:12→20:59)
[2022-02-26] MEDS: Enoxaparin 40 MG/0.4 ML Syringe SUBCUT SCH (20:58)
[2022-02-26] MEDS: traZODone 50 MG Tab PO SCH (20:59)
[2022-02-26] MEDS: atorvaSTATin 20 MG Tab PEGTUBE SCH (20:59)
[2022-02-27] MEDS: oxyCODONE 5 MG/5 ML Cup GTUBE PRN ×4 (02:34→22:03)
[2022-02-27] MEDS: Piperacillin/Tazobactam 3.375 GM in Sodium Chloride 0.9% 50 ML IV SCH ×4 (05:48→22:00)
[2022-02-27] MEDS: Pantoprazole 40 MG Tab.CR SCH (06:57)
[2022-02-27] MEDS: Levothyroxine 125 MCG Tab PO SCH (06:57)
[2022-02-27] MEDS: Azithromycin 500 MG in Sodium Chloride 0.9% 250 ML IV SCH (08:33)
[2022-02-27] MEDS: Multivitamin Tab SCH (08:33)
[2022-02-27] MEDS: CHLORHEXIDINE GLUCONATE PO SCH ×2 (09:23→21:16)
[2022-02-27] MEDS: atorvaSTATin 20 MG Tab PEGTUBE SCH (21:15)
[2022-02-27] MEDS: traZODone 50 MG Tab PO SCH (21:15)
[2022-02-27] MEDS: Enoxaparin 40 MG/0.4 ML Syringe SUBCUT SCH (21:16)
[2022-02-28] MEDS: oxyCODONE 5 MG/5 ML Cup GTUBE PRN ×6 (02:09→22:53)
[2022-02-28] MEDS: Piperacillin/Tazobactam 3.375 GM in Sodium Chloride 0.9% 50 ML IV SCH ×4 (04:26→22:48)
[2022-02-28] MEDS: Pantoprazole 40 MG Tab.CR SCH (06:30)
[2022-02-28] MEDS: Levothyroxine 125 MCG Tab PO SCH (06:30)
[2022-02-28] MEDS: Multivitamin Tab SCH (08:08)
[2022-02-28] MEDS: Azithromycin 500 MG in Sodium Chloride 0.9% 250 ML IV SCH (08:08)
[2022-02-28] MEDS: CHLORHEXIDINE GLUCONATE PO SCH ×2 (09:43→21:05)
[2022-02-28] MEDS: Albuterol/Ipratropium 3.0-0.5 MG/3 ML Neb Soln NEB PRN (18:53)
[2022-02-28] MEDS: Enoxaparin 40 MG/0.4 ML Syringe SUBCUT SCH (21:04)
[2022-02-28] MEDS: atorvaSTATin 20 MG Tab PEGTUBE SCH (21:05)
[2022-02-28] MEDS: traZODone 50 MG Tab PO SCH (21:05)
[2022-03-01] MEDS: oxyCODONE 5 MG/5 ML Cup GTUBE PRN ×5 (03:02→21:59)
[2022-03-01] MEDS: Piperacillin/Tazobactam 3.375 GM in Sodium Chloride 0.9% 50 ML IV SCH ×2 (04:10→11:21)
[2022-03-01] MEDS: Levothyroxine 125 MCG Tab PO SCH (06:29)
[2022-03-01] MEDS: Pantoprazole 40 MG Tab.CR SCH (06:29)
[2022-03-01] MEDS: CHLORHEXIDINE GLUCONATE PO SCH ×2 (09:46→21:59)
[2022-03-01] MEDS: Albuterol/Ipratropium 3.0-0.5 MG/3 ML Neb Soln NEB PRN ×2 (09:46→21:59)
[2022-03-01] MEDS: Multivitamin Tab SCH (09:46)
[2022-03-01] MEDS: Azithromycin 500 MG in Sodium Chloride 0.9% 250 ML IV SCH (09:46)
[2022-03-01] MEDS: atorvaSTATin 20 MG Tab PEGTUBE SCH (21:59)
[2022-03-01] MEDS: traZODone 50 MG Tab PO SCH (21:59)
[2022-03-01] MEDS: Enoxaparin 40 MG/0.4 ML Syringe SUBCUT SCH (21:59)
[2022-03-02] MEDS: oxyCODONE 5 MG/5 ML Cup GTUBE PRN ×4 (02:10→20:34)
[2022-03-02] MEDS: Pantoprazole 40 MG Tab.CR SCH (06:35)
[2022-03-02] MEDS: Levothyroxine 125 MCG Tab PO SCH (06:35)
[2022-03-02] MEDS ORDERED: Ketorolac 30 MG/ML SDV IVPUSH ONE (10:12)
[2022-03-02] MEDS ORDERED: Ondansetron 4 MG/2 ML SDV IVPUSH PRN (10:13)
[2022-03-02] MEDS: Multivitamin Tab SCH (10:27)
[2022-03-02] MEDS: Gabapentin 100 MG Cap GTUBE SCH ×2 (10:34→20:34)
[2022-03-02] MEDS: CHLORHEXIDINE GLUCONATE PO SCH ×2 (10:40→20:35)
[2022-03-02] MEDS: traZODone 50 MG Tab PO SCH (20:34)
[2022-03-02] MEDS: atorvaSTATin 20 MG Tab PEGTUBE SCH (20:34)
[2022-03-02] MEDS: Enoxaparin 40 MG/0.4 ML Syringe SUBCUT SCH (20:34)
[2022-03-03] MEDS: oxyCODONE 5 MG/5 ML Cup GTUBE PRN ×5 (00:35→22:04)
[2022-03-03] MEDS: Levothyroxine 125 MCG Tab PO SCH (06:45)
[2022-03-03] MEDS: Pantoprazole 40 MG Tab.CR SCH (06:45)
[2022-03-03] MEDS: Gabapentin 100 MG Cap GTUBE SCH ×2 (09:34→20:51)
[2022-03-03] MEDS: Multivitamin Tab SCH (09:34)
[2022-03-03] MEDS: Albuterol/Ipratropium 3.0-0.5 MG/3 ML Neb Soln NEB PRN ×2 (09:35→21:09)
[2022-03-03] MEDS: CHLORHEXIDINE GLUCONATE PO SCH ×2 (10:00→21:01)
[2022-03-03] MEDS: Carbamide Peroxide 6.5% Otic Soln 15 ML Bottle EARBOTH SCH ×2 (11:33→20:52)
[2022-03-03] MEDS: atorvaSTATin 20 MG Tab PEGTUBE SCH (20:51)
[2022-03-03] MEDS: traZODone 50 MG Tab PO SCH (20:51)
[2022-03-03] MEDS: Enoxaparin 40 MG/0.4 ML Syringe SUBCUT SCH (20:51)
[2022-03-04] MEDS: oxyCODONE 5 MG/5 ML Cup GTUBE PRN ×5 (04:10→22:19)
[2022-03-04] MEDS: Pantoprazole 40 MG Tab.CR SCH (06:29)
[2022-03-04] MEDS: Levothyroxine 125 MCG Tab PO SCH (06:29)
[2022-03-04 06:47] LABS: CARBON DIOXIDE,CO2 31.1 mmol/L (21.0-32.0); POTASSIUM,K 4.4 mmol/L (3.5-5.1)
[2022-03-04] MEDS ORDERED: Magnesium Sulfate/Water 2 GM in Premix Bag 1 BAG IV ONE (07:58)
[2022-03-04] MEDS: Multivitamin Tab SCH (09:17)
[2022-03-04] MEDS: Gabapentin 100 MG Cap GTUBE SCH ×2 (09:17→20:53)
[2022-03-04] MEDS: Carbamide Peroxide 6.5% Otic Soln 15 ML Bottle EARBOTH SCH ×2 (09:18→20:55)
[2022-03-04] MEDS: CHLORHEXIDINE GLUCONATE PO SCH ×2 (09:19→20:53)
[2022-03-04] MEDS: Mirtazapine 15 MG Tab PO SCH (20:52)
[2022-03-04] MEDS: traZODone 50 MG Tab PO SCH (20:53)
[2022-03-04] MEDS: Enoxaparin 40 MG/0.4 ML Syringe SUBCUT SCH (20:53)
[2022-03-04] MEDS: atorvaSTATin 20 MG Tab PEGTUBE SCH (20:53)
[2022-03-05] MEDS: oxyCODONE 5 MG/5 ML Cup GTUBE PRN ×4 (04:27→21:05)
[2022-03-05 06:08] LABS: CARBON DIOXIDE,CO2 29.8 mmol/L (21.0-32.0); POTASSIUM,K 4.8 mmol/L (3.5-5.1)
[2022-03-05] MEDS: Levothyroxine 125 MCG Tab PO SCH (06:32)
[2022-03-05] MEDS: Pantoprazole 40 MG Tab.CR SCH (06:32)
[2022-03-05] MEDS: Albuterol/Ipratropium 3.0-0.5 MG/3 ML Neb Soln NEB PRN (09:05)
[2022-03-05] MEDS: Gabapentin 100 MG Cap GTUBE SCH ×2 (09:58→21:04)
[2022-03-05] MEDS: Multivitamin Tab SCH (09:58)
[2022-03-05] MEDS: CHLORHEXIDINE GLUCONATE PO SCH ×2 (09:59→21:05)
[2022-03-05] MEDS: Carbamide Peroxide 6.5% Otic Soln 15 ML Bottle EARBOTH SCH ×2 (12:09→21:03)
[2022-03-05] MEDS: traZODone 50 MG Tab PO SCH (21:04)
[2022-03-05] MEDS: atorvaSTATin 20 MG Tab PEGTUBE SCH (21:04)
[2022-03-05] MEDS: Mirtazapine 15 MG Tab PO SCH (21:05)
[2022-03-05] MEDS: Enoxaparin 40 MG/0.4 ML Syringe SUBCUT SCH (21:07)
[2022-03-06] MEDS: oxyCODONE 5 MG/5 ML Cup GTUBE PRN ×4 (05:04→19:00)
[2022-03-06 08:03] LABS: CARBON DIOXIDE,CO2 29.7 mmol/L (21.0-32.0); POTASSIUM,K 4.7 mmol/L (3.5-5.1)
[2022-03-06] MEDS: Pantoprazole 40 MG Tab.CR SCH (08:16)
[2022-03-06] MEDS: Levothyroxine 125 MCG Tab PO SCH (08:16)
[2022-03-06] MEDS: Gabapentin 100 MG Cap GTUBE SCH ×2 (08:16→21:08)
[2022-03-06] MEDS: Carbamide Peroxide 6.5% Otic Soln 15 ML Bottle EARBOTH SCH ×2 (08:17→21:09)
[2022-03-06] MEDS: Multivitamin Tab SCH (08:17)
[2022-03-06] MEDS: CHLORHEXIDINE GLUCONATE PO SCH ×2 (08:25→21:07)
[2022-03-06] MEDS: Albuterol/Ipratropium 3.0-0.5 MG/3 ML Neb Soln NEB PRN (14:24)
[2022-03-06] MEDS: Enoxaparin 40 MG/0.4 ML Syringe SUBCUT SCH (21:07)
[2022-03-06] MEDS: traZODone 50 MG Tab PO SCH (21:08)
[2022-03-06] MEDS: atorvaSTATin 20 MG Tab PEGTUBE SCH (21:08)
[2022-03-06] MEDS: Mirtazapine 15 MG Tab PO SCH (21:08)
[2022-03-07] MEDS: oxyCODONE 5 MG/5 ML Cup GTUBE PRN ×5 (02:47→21:27)
[2022-03-07] MEDS: Pantoprazole 40 MG Tab.CR SCH (06:55)
[2022-03-07] MEDS: Levothyroxine 125 MCG Tab PO SCH (06:55)
[2022-03-07] MEDS: CHLORHEXIDINE GLUCONATE PO SCH ×2 (08:35→21:28)
[2022-03-07] MEDS: Multivitamin Tab SCH (08:35)
[2022-03-07] MEDS: Carbamide Peroxide 6.5% Otic Soln 15 ML Bottle EARBOTH SCH (08:35)
[2022-03-07] MEDS: Gabapentin 100 MG Cap GTUBE SCH ×2 (08:35→21:27)
[2022-03-07] MEDS: Albuterol/Ipratropium 3.0-0.5 MG/3 ML Neb Soln NEB PRN ×2 (08:35→13:10)
[2022-03-07] MEDS: traZODone 50 MG Tab PO SCH (21:26)
[2022-03-07] MEDS: atorvaSTATin 20 MG Tab PEGTUBE SCH (21:26)
[2022-03-07] MEDS: Enoxaparin 40 MG/0.4 ML Syringe SUBCUT SCH (21:27)
[2022-03-07] MEDS: Mirtazapine 15 MG Tab PO SCH (21:27)
[2022-03-08] MEDS: oxyCODONE 5 MG/5 ML Cup GTUBE PRN ×5 (02:29→21:30)
[2022-03-08] MEDS: Albuterol/Ipratropium 3.0-0.5 MG/3 ML Neb Soln NEB PRN ×2 (02:29→08:55)
[2022-03-08] MEDS: Levothyroxine 125 MCG Tab PO SCH (07:12)
[2022-03-08] MEDS: Pantoprazole 40 MG Tab.CR SCH (07:12)
[2022-03-08] MEDS ORDERED: Mirtazapine 15 MG Tab GTUBE SCH (08:22)
[2022-03-08] MEDS ORDERED: Levothyroxine 125 MCG Tab GTUBE SCH (08:23)
[2022-03-08] MEDS: Gabapentin 100 MG Cap GTUBE SCH ×2 (09:53→21:27)
[2022-03-08] MEDS: Multivitamin Tab SCH (09:53)
[2022-03-08] MEDS: CHLORHEXIDINE GLUCONATE PO SCH ×2 (09:54→21:29)
[2022-03-08] MEDS: Non-Formulary Medication 1 Each GTUBE SCH (18:55)
[2022-03-08] MEDS: Enoxaparin 40 MG/0.4 ML Syringe SUBCUT SCH (21:27)
[2022-03-08] MEDS: atorvaSTATin 20 MG Tab PEGTUBE SCH (21:27)
[2022-03-08] MEDS: Mirtazapine 15 MG Tab GTUBE SCH (21:29)
[2022-03-08] MEDS: traZODone 50 MG Tab PO SCH (21:29)
[2022-03-08] MEDS: Levothyroxine 125 MCG Tab GTUBE SCH (21:30)
[2022-03-09] MEDS: oxyCODONE 5 MG/5 ML Cup GTUBE PRN ×5 (01:31→21:32)
[2022-03-09] MEDS: Non-Formulary Medication 1 Each GTUBE SCH ×2 (03:07→18:44)
[2022-03-09] MEDS: Pantoprazole 40 MG Tab.CR SCH (06:45)
[2022-03-09] MEDS: Gabapentin 100 MG Cap GTUBE SCH ×2 (09:05→21:19)
[2022-03-09] MEDS: CHLORHEXIDINE GLUCONATE PO SCH ×2 (11:03→21:26)
[2022-03-09] MEDS: Multivitamin Tab SCH (11:57)
[2022-03-09] MEDS: Albuterol/Ipratropium 3.0-0.5 MG/3 ML Neb Soln NEB PRN (17:09)
[2022-03-09] MEDS: atorvaSTATin 20 MG Tab PEGTUBE SCH (21:19)
[2022-03-09] MEDS: Mirtazapine 15 MG Tab GTUBE SCH (21:19)
[2022-03-09] MEDS: Levothyroxine 125 MCG Tab GTUBE SCH (21:20)
[2022-03-09] MEDS: traZODone 50 MG Tab PO SCH (21:20)
[2022-03-09] MEDS: Enoxaparin 40 MG/0.4 ML Syringe SUBCUT SCH (21:25)
[2022-03-10] MEDS: oxyCODONE 5 MG/5 ML Cup GTUBE PRN ×4 (02:31→17:22)
[2022-03-10] MEDS: Non-Formulary Medication 1 Each GTUBE SCH ×2 (03:45→18:32)
[2022-03-10] MEDS: Pantoprazole 40 MG Tab.CR SCH (06:44)
[2022-03-10] MEDS: Gabapentin 100 MG Cap GTUBE SCH ×2 (08:56→21:30)
[2022-03-10] MEDS: Multivitamin Tab SCH (08:56)
[2022-03-10] MEDS: CHLORHEXIDINE GLUCONATE PO SCH ×2 (08:56→21:29)
[2022-03-10] MEDS: Albuterol/Ipratropium 3.0-0.5 MG/3 ML Neb Soln NEB PRN ×2 (10:07→18:26)
[2022-03-10] MEDS: Carbamide Peroxide 6.5% Otic Soln 15 ML Bottle EARBOTH SCH ×2 (10:23→21:37)
[2022-03-10] MEDS: Enoxaparin 40 MG/0.4 ML Syringe SUBCUT SCH (21:29)
[2022-03-10] MEDS: Levothyroxine 125 MCG Tab GTUBE SCH (21:31)
[2022-03-10] MEDS: atorvaSTATin 20 MG Tab PEGTUBE SCH (21:31)
[2022-03-10] MEDS: Mirtazapine 15 MG Tab GTUBE SCH (21:31)
[2022-03-11] MEDS: traZODone 50 MG Tab PO SCH (01:50)
[2022-03-11] MEDS: oxyCODONE 5 MG/5 ML Cup GTUBE PRN ×5 (01:50→17:57)
[2022-03-11] MEDS: Albuterol/Ipratropium 3.0-0.5 MG/3 ML Neb Soln NEB PRN ×4 (04:17→21:24)
[2022-03-11] MEDS: Pantoprazole 40 MG Tab.CR SCH ×2 (05:53→06:39)
[2022-03-11] MEDS: Gabapentin 100 MG Cap GTUBE SCH ×2 (09:27→21:24)
[2022-03-11] MEDS: CHLORHEXIDINE GLUCONATE PO SCH ×2 (09:27→21:24)
[2022-03-11] MEDS: Multivitamin Tab SCH (09:27)
[2022-03-11] MEDS: Carbamide Peroxide 6.5% Otic Soln 15 ML Bottle EARBOTH SCH ×2 (09:28→21:27)
[2022-03-11] MEDS: [UNRECOGNIZED DRUG - REMARK] GTUBE SCH (20:03)
[2022-03-11] MEDS: atorvaSTATin 20 MG Tab PEGTUBE SCH (21:23)
[2022-03-11] MEDS: Mirtazapine 15 MG Tab GTUBE SCH (21:23)
[2022-03-11] MEDS: Enoxaparin 40 MG/0.4 ML Syringe SUBCUT SCH (21:24)
[2022-03-11] MEDS: Levothyroxine 125 MCG Tab GTUBE SCH (22:18)
[2022-03-11] MEDS: [UNRECOGNIZED DRUG - REMARK] GTUBE SCH (23:01)
[2022-03-12] MEDS: oxyCODONE 5 MG/5 ML Cup GTUBE PRN ×5 (02:38→20:19)
[2022-03-12] MEDS: traZODone 50 MG Tab PO SCH (02:38)
[2022-03-12] MEDS: Pantoprazole 40 MG Tab.CR SCH (06:47)
[2022-03-12] MEDS: Multivitamin Tab SCH (09:50)
[2022-03-12] MEDS: CHLORHEXIDINE GLUCONATE PO SCH ×2 (09:50→20:21)
[2022-03-12] MEDS: Gabapentin 100 MG Cap GTUBE SCH ×2 (09:50→20:19)
[2022-03-12] MEDS: Carbamide Peroxide 6.5% Otic Soln 15 ML Bottle EARBOTH SCH ×2 (09:51→20:21)
[2022-03-12] MEDS: [UNRECOGNIZED DRUG - REMARK] GTUBE SCH (20:00)
[2022-03-12] MEDS: Enoxaparin 40 MG/0.4 ML Syringe SUBCUT SCH (20:18)
[2022-03-12] MEDS: atorvaSTATin 20 MG Tab PEGTUBE SCH (20:19)
[2022-03-12] MEDS: Mirtazapine 15 MG Tab GTUBE SCH (20:19)
[2022-03-12] MEDS: Carboxymethylcellulose Sodium 0.5% Ophth Soln 0.4 ML UD Box of 30 EYEBOTH SCH (20:20)
[2022-03-12] MEDS: Levothyroxine 125 MCG Tab GTUBE SCH (21:53)
[2022-03-12] MEDS: Albuterol/Ipratropium 3.0-0.5 MG/3 ML Neb Soln NEB PRN (21:54)
[2022-03-12] MEDS: [UNRECOGNIZED DRUG - REMARK] GTUBE SCH (22:32)
[2022-03-13] MEDS: traZODone 50 MG Tab PO SCH (02:28)
[2022-03-13] MEDS: oxyCODONE 5 MG/5 ML Cup GTUBE PRN ×5 (02:28→21:41)
[2022-03-13] MEDS: Gabapentin 100 MG Cap GTUBE SCH ×2 (08:28→21:40)
[2022-03-13] MEDS: Pantoprazole 40 MG Tab.CR SCH (08:28)
[2022-03-13] MEDS: Multivitamin Tab SCH (08:28)
[2022-03-13] MEDS: CHLORHEXIDINE GLUCONATE PO SCH ×2 (08:29→21:37)
[2022-03-13] MEDS: Carbamide Peroxide 6.5% Otic Soln 15 ML Bottle EARBOTH SCH ×2 (08:29→21:39)
[2022-03-13] MEDS: Carboxymethylcellulose Sodium 0.5% Ophth Soln 0.4 ML UD Box of 30 EYEBOTH SCH ×2 (08:32→21:45)
[2022-03-13] MEDS: Albuterol/Ipratropium 3.0-0.5 MG/3 ML Neb Soln NEB PRN ×3 (09:55→22:04)
[2022-03-13] MEDS: [UNRECOGNIZED DRUG - REMARK] GTUBE SCH (20:25)
[2022-03-13] MEDS: Enoxaparin 40 MG/0.4 ML Syringe SUBCUT SCH (21:37)
[2022-03-13] MEDS: atorvaSTATin 20 MG Tab PEGTUBE SCH (21:40)
[2022-03-13] MEDS: Mirtazapine 15 MG Tab GTUBE SCH (21:40)
[2022-03-13] MEDS: Levothyroxine 125 MCG Tab GTUBE SCH (21:40)
[2022-03-13] MEDS: [UNRECOGNIZED DRUG - REMARK] GTUBE SCH (22:46)
[2022-03-14] MEDS: traZODone 50 MG Tab PO SCH (01:40)
[2022-03-14] MEDS: oxyCODONE 5 MG/5 ML Cup GTUBE PRN ×5 (01:40→18:57)
[2022-03-14] MEDS: Albuterol/Ipratropium 3.0-0.5 MG/3 ML Neb Soln NEB PRN ×3 (01:42→19:21)
[2022-03-14] MEDS: Pantoprazole 40 MG Tab.CR SCH (06:30)
[2022-03-14] MEDS: Multivitamin Tab SCH (08:36)
[2022-03-14] MEDS: Gabapentin 100 MG Cap GTUBE SCH ×2 (08:36→21:22)
[2022-03-14] MEDS: Carbamide Peroxide 6.5% Otic Soln 15 ML Bottle EARBOTH SCH ×2 (08:40→21:34)
[2022-03-14] MEDS: Carboxymethylcellulose Sodium 0.5% Ophth Soln 0.4 ML UD Box of 30 EYEBOTH SCH ×2 (08:42→21:31)
[2022-03-14] MEDS: CHLORHEXIDINE GLUCONATE PO SCH ×2 (08:43→21:32)
[2022-03-14] MEDS: [UNRECOGNIZED DRUG - REMARK] GTUBE SCH (19:55)
[2022-03-14] MEDS: Enoxaparin 40 MG/0.4 ML Syringe SUBCUT SCH (21:22)
[2022-03-14] MEDS: atorvaSTATin 20 MG Tab PEGTUBE SCH (21:22)
[2022-03-14] MEDS: Mirtazapine 15 MG Tab GTUBE SCH (21:22)
[2022-03-14] MEDS: Levothyroxine 125 MCG Tab GTUBE SCH (21:23)
[2022-03-14] MEDS: [UNRECOGNIZED DRUG - REMARK] GTUBE SCH (21:38)
[2022-03-15] MEDS: traZODone 50 MG Tab PO SCH (02:44)
[2022-03-15] MEDS: oxyCODONE 5 MG/5 ML Cup GTUBE PRN ×5 (02:45→21:31)
[2022-03-15] MEDS: Albuterol/Ipratropium 3.0-0.5 MG/3 ML Neb Soln NEB PRN ×2 (04:14→14:42)
[2022-03-15] MEDS: Pantoprazole 40 MG Tab.CR SCH (06:31)
[2022-03-15] MEDS: Multivitamin Tab SCH (08:45)
[2022-03-15] MEDS: Gabapentin 100 MG Cap GTUBE SCH ×2 (08:45→21:32)
[2022-03-15] MEDS: CHLORHEXIDINE GLUCONATE PO SCH ×2 (09:34→21:32)
[2022-03-15] MEDS: Carbamide Peroxide 6.5% Otic Soln 15 ML Bottle EARBOTH SCH ×2 (09:34→21:35)
[2022-03-15] MEDS: Carboxymethylcellulose Sodium 0.5% Ophth Soln 0.4 ML UD Box of 30 EYEBOTH SCH ×2 (09:35→21:33)
[2022-03-15] MEDS: [UNRECOGNIZED DRUG - REMARK] GTUBE SCH (20:00)
[2022-03-15] MEDS: Enoxaparin 40 MG/0.4 ML Syringe SUBCUT SCH (21:31)
[2022-03-15] MEDS: Levothyroxine 125 MCG Tab GTUBE SCH (21:32)
[2022-03-15] MEDS: atorvaSTATin 20 MG Tab PEGTUBE SCH (21:32)
[2022-03-15] MEDS: Mirtazapine 15 MG Tab GTUBE SCH (21:33)
[2022-03-15] MEDS: [UNRECOGNIZED DRUG - REMARK] GTUBE SCH (22:05)
[2022-03-16] MEDS: oxyCODONE 5 MG/5 ML Cup GTUBE PRN ×5 (01:33→21:36)
[2022-03-16] MEDS: traZODone 50 MG Tab PO SCH (01:33)
[2022-03-16] MEDS: CHLORHEXIDINE GLUCONATE PO SCH ×2 (09:54→21:34)
[2022-03-16] MEDS: Gabapentin 100 MG Cap GTUBE SCH ×2 (09:55→21:34)
[2022-03-16] MEDS: Levothyroxine 125 MCG Tab PO SCH (09:55)
[2022-03-16] MEDS: Carboxymethylcellulose Sodium 0.5% Ophth Soln 0.4 ML UD Box of 30 EYEBOTH SCH ×2 (09:55→21:34)
[2022-03-16] MEDS: Carbamide Peroxide 6.5% Otic Soln 15 ML Bottle EARBOTH SCH ×2 (09:55→21:33)
[2022-03-16] MEDS: Multivitamin Tab SCH (09:55)
[2022-03-16] MEDS: Albuterol/Ipratropium 3.0-0.5 MG/3 ML Neb Soln NEB PRN (16:50)
[2022-03-16] MEDS: [UNRECOGNIZED DRUG - REMARK] GTUBE SCH (20:03)
[2022-03-16] MEDS: atorvaSTATin 20 MG Tab PEGTUBE SCH (21:34)
[2022-03-16] MEDS: Enoxaparin 40 MG/0.4 ML Syringe SUBCUT SCH (21:34)
[2022-03-16] MEDS: Mirtazapine 15 MG Tab GTUBE SCH (21:35)
[2022-03-16] MEDS ORDERED: Lansoprazole 30 MG Orally Disintegrating Tab.CR PO SCH (22:00)
[2022-03-16] MEDS: Levothyroxine 125 MCG Tab GTUBE SCH (22:15)
[2022-03-16] MEDS: [UNRECOGNIZED DRUG - REMARK] GTUBE SCH (22:51)
[2022-03-17] MEDS: traZODone 50 MG Tab PO SCH (01:48)
[2022-03-17] MEDS: oxyCODONE 5 MG/5 ML Cup GTUBE PRN ×5 (01:48→19:59)
[2022-03-17] MEDS ORDERED: Lansoprazole 30 MG Orally Disintegrating Tab.CR SCH (06:38)
[2022-03-17] MEDS: Gabapentin 100 MG Cap GTUBE SCH ×2 (09:26→21:43)
[2022-03-17] MEDS: Multivitamin Tab SCH (09:26)
[2022-03-17] MEDS: Carbamide Peroxide 6.5% Otic Soln 15 ML Bottle EARBOTH SCH ×2 (09:27→21:45)
[2022-03-17] MEDS: CHLORHEXIDINE GLUCONATE PO SCH ×2 (09:29→21:44)
[2022-03-17] MEDS: Carboxymethylcellulose Sodium 0.5% Ophth Soln 0.4 ML UD Box of 30 EYEBOTH SCH ×2 (09:40→21:44)
[2022-03-17] MEDS ORDERED: BIOTENE DRY MOUTH RINSE SL PRN (10:55)
[2022-03-17] MEDS: Pantoprazole 40 MG Tab.CR SCH (11:03)
[2022-03-17] MEDS: Albuterol/Ipratropium 3.0-0.5 MG/3 ML Neb Soln NEB PRN ×2 (12:25→23:22)
[2022-03-17] MEDS: [UNRECOGNIZED DRUG - REMARK] GTUBE SCH (20:33)
[2022-03-17] MEDS: atorvaSTATin 20 MG Tab PEGTUBE SCH (21:43)
[2022-03-17] MEDS: Mirtazapine 15 MG Tab GTUBE SCH (21:43)
[2022-03-17] MEDS: Enoxaparin 40 MG/0.4 ML Syringe SUBCUT SCH (21:43)
[2022-03-17] MEDS: Levothyroxine 125 MCG Tab GTUBE SCH (22:33)
[2022-03-17] MEDS: Lansoprazole 30 MG Orally Disintegrating Tab.CR SCH (22:34)
[2022-03-17] MEDS: [UNRECOGNIZED DRUG - REMARK] GTUBE SCH (23:10)
[2022-03-18] MEDS: oxyCODONE 5 MG/5 ML Cup GTUBE PRN ×6 (00:08→22:01)
[2022-03-18] MEDS: traZODone 50 MG Tab PO SCH (01:58)
[2022-03-18 07:30] LABS: CARBON DIOXIDE,CO2 33.3 mmol/L (21.0-32.0)
[2022-03-18] MEDS: Gabapentin 100 MG Cap GTUBE SCH ×2 (09:27→20:02)
[2022-03-18] MEDS: Multivitamin Tab SCH (09:28)
[2022-03-18] MEDS: Carbamide Peroxide 6.5% Otic Soln 15 ML Bottle EARBOTH SCH ×2 (09:29→20:04)
[2022-03-18] MEDS: Carboxymethylcellulose Sodium 0.5% Ophth Soln 0.4 ML UD Box of 30 EYEBOTH SCH ×2 (09:29→20:03)
[2022-03-18] MEDS: CHLORHEXIDINE GLUCONATE PO SCH ×2 (09:29→20:04)
[2022-03-18] MEDS ORDERED: Magnesium Sulfate/Water 2 GM/50 ML Premix Bag IV ONE (11:29)
[2022-03-18] MEDS ORDERED: Magnesium Sulfate/Water 2 GM in Premix Bag 1 BAG IV ONE (11:45)
[2022-03-18] MEDS: Albuterol/Ipratropium 3.0-0.5 MG/3 ML Neb Soln NEB PRN ×3 (14:08→22:02)
[2022-03-18] MEDS: [UNRECOGNIZED DRUG - REMARK] GTUBE SCH (20:01)
[2022-03-18] MEDS: Mirtazapine 15 MG Tab GTUBE SCH (20:02)
[2022-03-18] MEDS: atorvaSTATin 20 MG Tab PEGTUBE SCH (20:02)
[2022-03-18] MEDS: Enoxaparin 40 MG/0.4 ML Syringe SUBCUT SCH (20:03)
[2022-03-18] MEDS: Lansoprazole 30 MG Orally Disintegrating Tab.CR SCH (22:01)
[2022-03-18] MEDS: Levothyroxine 125 MCG Tab GTUBE SCH (22:01)
[2022-03-18] MEDS: [UNRECOGNIZED DRUG - REMARK] GTUBE SCH (22:36)
[2022-03-19] MEDS: traZODone 50 MG Tab PO SCH (02:08)
[2022-03-19] MEDS: oxyCODONE 5 MG/5 ML Cup GTUBE PRN ×5 (04:34→22:25)
[2022-03-19] MEDS: Albuterol/Ipratropium 3.0-0.5 MG/3 ML Neb Soln NEB PRN ×3 (08:13→18:12)
[2022-03-19] MEDS: Gabapentin 100 MG Cap GTUBE SCH ×2 (09:42→21:39)
[2022-03-19] MEDS: Multivitamin Tab SCH (09:42)
[2022-03-19] MEDS: Carboxymethylcellulose Sodium 0.5% Ophth Soln 0.4 ML UD Box of 30 EYEBOTH SCH ×2 (09:44→21:41)
[2022-03-19] MEDS: CHLORHEXIDINE GLUCONATE PO SCH ×2 (09:45→21:42)
[2022-03-19] MEDS: Carbamide Peroxide 6.5% Otic Soln 15 ML Bottle EARBOTH SCH ×2 (09:48→21:49)
[2022-03-19] MEDS: Levothyroxine 125 MCG Tab GTUBE SCH (21:40)
[2022-03-19] MEDS: Lansoprazole 30 MG Orally Disintegrating Tab.CR SCH (21:40)
[2022-03-19] MEDS: Mirtazapine 15 MG Tab GTUBE SCH (21:40)
[2022-03-19] MEDS: Enoxaparin 40 MG/0.4 ML Syringe SUBCUT SCH (21:40)
[2022-03-19] MEDS: atorvaSTATin 20 MG Tab PEGTUBE SCH (21:40)
[2022-03-19] MEDS: [UNRECOGNIZED DRUG - REMARK] GTUBE SCH (21:48)
[2022-03-19] MEDS: [UNRECOGNIZED DRUG - REMARK] GTUBE SCH (22:26)
[2022-03-20] MEDS: traZODone 50 MG Tab PO SCH (02:37)
[2022-03-20] MEDS: oxyCODONE 5 MG/5 ML Cup GTUBE PRN ×5 (02:58→20:45)
[2022-03-20] MEDS: Albuterol/Ipratropium 3.0-0.5 MG/3 ML Neb Soln NEB PRN ×3 (08:12→23:26)
[2022-03-20] MEDS: Carbamide Peroxide 6.5% Otic Soln 15 ML Bottle EARBOTH SCH ×2 (09:41→20:50)
[2022-03-20] MEDS: Carboxymethylcellulose Sodium 0.5% Ophth Soln 0.4 ML UD Box of 30 EYEBOTH SCH ×2 (09:42→20:49)
[2022-03-20] MEDS: Multivitamin Tab SCH (09:42)
[2022-03-20] MEDS: Gabapentin 100 MG Cap GTUBE SCH ×2 (09:42→20:45)
[2022-03-20] MEDS: CHLORHEXIDINE GLUCONATE PO SCH ×2 (09:42→20:50)
[2022-03-20] MEDS: [UNRECOGNIZED DRUG - REMARK] GTUBE SCH (20:00)
[2022-03-20] MEDS: Enoxaparin 40 MG/0.4 ML Syringe SUBCUT SCH (20:44)
[2022-03-20] MEDS: Mirtazapine 15 MG Tab GTUBE SCH (20:48)
[2022-03-20] MEDS: atorvaSTATin 20 MG Tab PEGTUBE SCH (21:01)
[2022-03-20] MEDS: Levothyroxine 125 MCG Tab GTUBE SCH (22:44)
[2022-03-20] MEDS: Lansoprazole 30 MG Orally Disintegrating Tab.CR SCH (22:49)
[2022-03-20] MEDS: [UNRECOGNIZED DRUG - REMARK] GTUBE SCH (23:42)
[2022-03-21] MEDS: oxyCODONE 5 MG/5 ML Cup GTUBE PRN ×6 (01:09→21:45)
[2022-03-21] MEDS: traZODone 50 MG Tab PO SCH (01:10)
[2022-03-21 07:25] LABS: CARBON DIOXIDE,CO2 32.8 mmol/L (21.0-32.0)
[2022-03-21] MEDS: Multivitamin Tab SCH (09:32)
[2022-03-21] MEDS: Gabapentin 100 MG Cap GTUBE SCH ×2 (09:32→21:41)
[2022-03-21] MEDS: CHLORHEXIDINE GLUCONATE PO SCH ×2 (09:33→21:52)
[2022-03-21] MEDS: Carboxymethylcellulose Sodium 0.5% Ophth Soln 0.4 ML UD Box of 30 EYEBOTH SCH ×2 (09:33→21:44)
[2022-03-21] MEDS: Carbamide Peroxide 6.5% Otic Soln 15 ML Bottle EARBOTH SCH ×2 (09:33→21:52)
[2022-03-21] MEDS: [UNRECOGNIZED DRUG - REMARK] GTUBE SCH (10:30)
[2022-03-21] MEDS: Albuterol/Ipratropium 3.0-0.5 MG/3 ML Neb Soln NEB PRN ×3 (14:35→22:14)
[2022-03-21] MEDS: [UNRECOGNIZED DRUG - REMARK] GTUBE SCH (20:00)
[2022-03-21] MEDS: atorvaSTATin 20 MG Tab PEGTUBE SCH (21:42)
[2022-03-21] MEDS: Mirtazapine 15 MG Tab GTUBE SCH (21:42)
[2022-03-21] MEDS: Levothyroxine 125 MCG Tab GTUBE SCH (21:43)
[2022-03-21] MEDS: Enoxaparin 40 MG/0.4 ML Syringe SUBCUT SCH (21:44)
[2022-03-21] MEDS: Lansoprazole 30 MG Orally Disintegrating Tab.CR SCH (21:51)
[2022-03-22] MEDS: traZODone 50 MG Tab PO SCH (02:19)
[2022-03-22] MEDS: oxyCODONE 5 MG/5 ML Cup GTUBE PRN ×5 (02:20→20:36)
[2022-03-22] MEDS: Gabapentin 100 MG Cap GTUBE SCH ×2 (09:47→21:50)
[2022-03-22] MEDS: Carboxymethylcellulose Sodium 0.5% Ophth Soln 0.4 ML UD Box of 30 EYEBOTH SCH ×2 (09:47→22:16)
[2022-03-22] MEDS: Multivitamin Tab SCH (09:47)
[2022-03-22] MEDS: Carbamide Peroxide 6.5% Otic Soln 15 ML Bottle EARBOTH SCH ×2 (09:48→21:50)
[2022-03-22] MEDS: CHLORHEXIDINE GLUCONATE PO SCH ×2 (09:48→22:08)
[2022-03-22] MEDS: Albuterol/Ipratropium 3.0-0.5 MG/3 ML Neb Soln NEB PRN ×2 (16:33→20:37)
[2022-03-22] MEDS: [UNRECOGNIZED DRUG - REMARK] GTUBE SCH (20:00)
[2022-03-22] MEDS: Enoxaparin 40 MG/0.4 ML Syringe SUBCUT SCH (21:45)
[2022-03-22] MEDS: Levothyroxine 125 MCG Tab GTUBE SCH (21:50)
[2022-03-22] MEDS: atorvaSTATin 20 MG Tab PEGTUBE SCH (21:50)
[2022-03-22] MEDS: Lansoprazole 30 MG Orally Disintegrating Tab.CR SCH (21:50)
[2022-03-22] MEDS: Mirtazapine 15 MG Tab GTUBE SCH (21:50)
[2022-03-22] MEDS: [UNRECOGNIZED DRUG - REMARK] GTUBE SCH (22:19)
[2022-03-23] MEDS: oxyCODONE 5 MG/5 ML Cup GTUBE PRN ×6 (00:56→21:55)
[2022-03-23] MEDS: traZODone 50 MG Tab PO SCH (01:01)
[2022-03-23] MEDS: Albuterol/Ipratropium 3.0-0.5 MG/3 ML Neb Soln NEB PRN ×2 (01:05→04:56)
[2022-03-23] MEDS ORDERED: Ferrous Sulfate 325 MG Tab SCH (08:00)
[2022-03-23] MEDS: Gabapentin 100 MG Cap GTUBE SCH ×2 (09:24→21:54)
[2022-03-23] MEDS: Multivitamin Tab SCH (09:24)
[2022-03-23] MEDS: CHLORHEXIDINE GLUCONATE PO SCH ×2 (09:25→21:56)
[2022-03-23] MEDS: Carboxymethylcellulose Sodium 0.5% Ophth Soln 0.4 ML UD Box of 30 EYEBOTH SCH ×2 (09:25→21:55)
[2022-03-23] MEDS: Carbamide Peroxide 6.5% Otic Soln 15 ML Bottle EARBOTH SCH ×2 (09:26→21:56)
[2022-03-23] MEDS: Levothyroxine 125 MCG Tab GTUBE SCH (21:54)
[2022-03-23] MEDS: Enoxaparin 40 MG/0.4 ML Syringe SUBCUT SCH (21:54)
[2022-03-23] MEDS: atorvaSTATin 20 MG Tab PEGTUBE SCH (21:54)
[2022-03-23] MEDS: Mirtazapine 15 MG Tab GTUBE SCH (21:54)
[2022-03-23] MEDS: [UNRECOGNIZED DRUG - REMARK] GTUBE SCH (21:56)
[2022-03-23] MEDS: Lansoprazole 30 MG Orally Disintegrating Tab.CR SCH (22:15)
[2022-03-23] MEDS: [UNRECOGNIZED DRUG - REMARK] GTUBE SCH (22:19)
[2022-03-24] MEDS: traZODone 50 MG Tab PO SCH (03:18)
[2022-03-24] MEDS: oxyCODONE 5 MG/5 ML Cup GTUBE PRN ×5 (03:18→21:06)
[2022-03-24] MEDS: Albuterol/Ipratropium 3.0-0.5 MG/3 ML Neb Soln NEB PRN ×3 (03:26→20:06)
[2022-03-24] MEDS: Multivitamin Tab SCH (08:23)
[2022-03-24] MEDS: Iron Polysaccharides Complex 150 MG Cap GTUBE SCH (08:24)
[2022-03-24] MEDS: Gabapentin 100 MG Cap GTUBE SCH ×2 (08:24→20:06)
[2022-03-24] MEDS: Carbamide Peroxide 6.5% Otic Soln 15 ML Bottle EARBOTH SCH ×2 (08:24→20:04)
[2022-03-24] MEDS: Carboxymethylcellulose Sodium 0.5% Ophth Soln 0.4 ML UD Box of 30 EYEBOTH SCH ×2 (08:25→20:06)
[2022-03-24] MEDS: CHLORHEXIDINE GLUCONATE PO SCH ×2 (08:25→20:06)
[2022-03-24] MEDS: [UNRECOGNIZED DRUG - REMARK] GTUBE SCH (20:03)
[2022-03-24] MEDS: Enoxaparin 40 MG/0.4 ML Syringe SUBCUT SCH (20:05)
[2022-03-24] MEDS: Mirtazapine 15 MG Tab GTUBE SCH (20:05)
[2022-03-24] MEDS: atorvaSTATin 20 MG Tab PEGTUBE SCH (20:05)
[2022-03-24] MEDS: Lansoprazole 30 MG Orally Disintegrating Tab.CR SCH (22:09)
[2022-03-24] MEDS: Levothyroxine 125 MCG Tab GTUBE SCH (22:09)
[2022-03-24] MEDS: [UNRECOGNIZED DRUG - REMARK] GTUBE SCH (22:41)
[2022-03-25] MEDS: oxyCODONE 5 MG/5 ML Cup GTUBE PRN ×5 (02:09→20:21)
[2022-03-25] MEDS: traZODone 50 MG Tab PO SCH (02:09)
[2022-03-25] MEDS: Albuterol/Ipratropium 3.0-0.5 MG/3 ML Neb Soln NEB PRN ×2 (03:05→15:14)
[2022-03-25] MEDS: Iron Polysaccharides Complex 150 MG Cap GTUBE SCH (09:00)
[2022-03-25] MEDS: Multivitamin Tab SCH (09:00)
[2022-03-25] MEDS: Gabapentin 100 MG Cap GTUBE SCH ×2 (09:00→20:21)
[2022-03-25] MEDS: Carboxymethylcellulose Sodium 0.5% Ophth Soln 0.4 ML UD Box of 30 EYEBOTH SCH ×2 (09:01→20:22)
[2022-03-25] MEDS: Carbamide Peroxide 6.5% Otic Soln 15 ML Bottle EARBOTH SCH ×2 (09:03→20:21)
[2022-03-25] MEDS: CHLORHEXIDINE GLUCONATE PO SCH ×2 (09:04→20:21)
[2022-03-25] MEDS: [UNRECOGNIZED DRUG - REMARK] GTUBE SCH (20:01)
[2022-03-25] MEDS: Mirtazapine 15 MG Tab GTUBE SCH (20:21)
[2022-03-25] MEDS: Enoxaparin 40 MG/0.4 ML Syringe SUBCUT SCH (20:21)
[2022-03-25] MEDS: atorvaSTATin 20 MG Tab PEGTUBE SCH (20:21)
[2022-03-25] MEDS: Levothyroxine 125 MCG Tab GTUBE SCH (22:09)
[2022-03-25] MEDS: Lansoprazole 30 MG Orally Disintegrating Tab.CR SCH (22:09)
[2022-03-25] MEDS: [UNRECOGNIZED DRUG - REMARK] GTUBE SCH (22:41)
[2022-03-26] MEDS: traZODone 50 MG Tab PO SCH (01:07)
[2022-03-26] MEDS: oxyCODONE 5 MG/5 ML Cup GTUBE PRN ×5 (01:07→20:33)
[2022-03-26] MEDS: Multivitamin Tab SCH (10:05)
[2022-03-26] MEDS: Iron Polysaccharides Complex 150 MG Cap GTUBE SCH (10:05)
[2022-03-26] MEDS: Gabapentin 100 MG Cap GTUBE SCH ×2 (10:05→20:33)
[2022-03-26] MEDS: Carbamide Peroxide 6.5% Otic Soln 15 ML Bottle EARBOTH SCH ×3 (10:08→20:34)
[2022-03-26] MEDS: CHLORHEXIDINE GLUCONATE PO SCH ×2 (10:09→20:34)
[2022-03-26] MEDS: Carboxymethylcellulose Sodium 0.5% Ophth Soln 0.4 ML UD Box of 30 EYEBOTH SCH ×2 (10:10→20:34)
[2022-03-26] MEDS: Albuterol/Ipratropium 3.0-0.5 MG/3 ML Neb Soln NEB PRN (12:18)
[2022-03-26] MEDS: atorvaSTATin 20 MG Tab PEGTUBE SCH (20:33)
[2022-03-26] MEDS: Enoxaparin 40 MG/0.4 ML Syringe SUBCUT SCH (20:33)
[2022-03-26] MEDS: Mirtazapine 15 MG Tab GTUBE SCH (20:33)
[2022-03-26] MEDS: [UNRECOGNIZED DRUG - REMARK] GTUBE SCH (20:35)
[2022-03-26] MEDS: Levothyroxine 125 MCG Tab GTUBE SCH (22:32)
[2022-03-26] MEDS: Lansoprazole 30 MG Orally Disintegrating Tab.CR SCH (22:33)
[2022-03-26] MEDS: [UNRECOGNIZED DRUG - REMARK] GTUBE SCH (23:00)
[2022-03-27] MEDS: oxyCODONE 5 MG/5 ML Cup GTUBE PRN ×6 (00:59→22:29)
[2022-03-27] MEDS: traZODone 50 MG Tab PO SCH (01:00)
[2022-03-27] MEDS: Albuterol/Ipratropium 3.0-0.5 MG/3 ML Neb Soln NEB PRN ×5 (05:17→22:29)
[2022-03-27] MEDS: Gabapentin 100 MG Cap GTUBE SCH ×2 (08:43→21:28)
[2022-03-27] MEDS: Carboxymethylcellulose Sodium 0.5% Ophth Soln 0.4 ML UD Box of 30 EYEBOTH SCH ×2 (08:43→21:31)
[2022-03-27] MEDS: Multivitamin Tab SCH (08:43)
[2022-03-27] MEDS: CHLORHEXIDINE GLUCONATE PO SCH ×2 (08:43→21:30)
[2022-03-27] MEDS: Iron Polysaccharides Complex 150 MG Cap GTUBE SCH (08:43)
[2022-03-27] MEDS: Carbamide Peroxide 6.5% Otic Soln 15 ML Bottle EARBOTH SCH ×2 (08:46→21:31)
[2022-03-27] MEDS: [UNRECOGNIZED DRUG - REMARK] GTUBE SCH (20:00)
[2022-03-27] MEDS: Enoxaparin 40 MG/0.4 ML Syringe SUBCUT SCH (21:28)
[2022-03-27] MEDS: atorvaSTATin 20 MG Tab PEGTUBE SCH (21:28)
[2022-03-27] MEDS: Mirtazapine 15 MG Tab GTUBE SCH (21:28)
[2022-03-27] MEDS: Levothyroxine 125 MCG Tab GTUBE SCH (21:29)
[2022-03-27] MEDS: Lansoprazole 30 MG Orally Disintegrating Tab.CR SCH (22:29)
[2022-03-27] MEDS: [UNRECOGNIZED DRUG - REMARK] GTUBE SCH (22:42)
[2022-03-28] MEDS: traZODone 50 MG Tab PO SCH (02:20)
[2022-03-28] MEDS: Albuterol/Ipratropium 3.0-0.5 MG/3 ML Neb Soln NEB PRN ×5 (02:20→20:09)
[2022-03-28] MEDS: oxyCODONE 5 MG/5 ML Cup GTUBE PRN ×5 (02:21→20:09)
[2022-03-28] MEDS: Carbamide Peroxide 6.5% Otic Soln 15 ML Bottle EARBOTH SCH ×2 (08:52→20:10)
[2022-03-28] MEDS: Gabapentin 100 MG Cap GTUBE SCH ×2 (08:53→20:09)
[2022-03-28] MEDS: Carboxymethylcellulose Sodium 0.5% Ophth Soln 0.4 ML UD Box of 30 EYEBOTH SCH ×2 (08:53→20:15)
[2022-03-28] MEDS: Multivitamin Tab SCH (08:53)
[2022-03-28] MEDS: Iron Polysaccharides Complex 150 MG Cap GTUBE SCH (08:53)
[2022-03-28] MEDS: CHLORHEXIDINE GLUCONATE PO SCH ×2 (08:59→20:10)
[2022-03-28] MEDS: Enoxaparin 40 MG/0.4 ML Syringe SUBCUT SCH (20:09)
[2022-03-28] MEDS: atorvaSTATin 20 MG Tab PEGTUBE SCH (20:09)
[2022-03-28] MEDS: [UNRECOGNIZED DRUG - REMARK] GTUBE SCH (20:09)
[2022-03-28] MEDS: Mirtazapine 15 MG Tab GTUBE SCH (20:09)
[2022-03-28] MEDS: Lansoprazole 30 MG Orally Disintegrating Tab.CR SCH (22:04)
[2022-03-28] MEDS: Levothyroxine 125 MCG Tab GTUBE SCH (22:04)
[2022-03-28] MEDS: [UNRECOGNIZED DRUG - REMARK] GTUBE SCH (22:33)
[2022-03-29] MEDS: traZODone 50 MG Tab PO SCH (01:03)
[2022-03-29] MEDS: oxyCODONE 5 MG/5 ML Cup GTUBE PRN ×4 (01:03→13:18)
[2022-03-29] MEDS: Albuterol/Ipratropium 3.0-0.5 MG/3 ML Neb Soln NEB PRN (08:18)
[2022-03-29] MEDS: Gabapentin 100 MG Cap GTUBE SCH (09:44)
[2022-03-29] MEDS: Multivitamin Tab SCH (09:44)
[2022-03-29] MEDS: Iron Polysaccharides Complex 150 MG Cap GTUBE SCH (09:45)
[2022-03-29] MEDS: Carboxymethylcellulose Sodium 0.5% Ophth Soln 0.4 ML UD Box of 30 EYEBOTH SCH (09:46)
[2022-03-29] MEDS: CHLORHEXIDINE GLUCONATE PO SCH (09:48)
[2022-03-29] MEDS: Carbamide Peroxide 6.5% Otic Soln 15 ML Bottle EARBOTH SCH (09:48)
[2022-03-29 14:02] VITALS: BP 103/71; PULSE 89
== END 2022-03-29 13:30 | disposition home or self-care (01) | DRG 640 ==
LOC: MW.ED 13:24 → MW.MS 17:43 → MW.ICU 02-23 08:52 → MW.MS 02-24 16:17
PROVIDERS: ADMIT Student in an Organized Health Care Education/Training Program; ATTEND Student in an Organized Health Care Education/Training Program
DX: R62.7 Adult failure to thrive (principal); E43 Unspecified severe protein-calorie malnutrition; J69.0 Pneumonitis due to inhalation of food and vomit; J96.01 Acute respiratory failure with hypoxia; D64.9 Anemia, unspecified; Z68.1 Body mass index [BMI] 19.9 or less, adult; K94.23 Gastrostomy malfunction; E87.1 Hypo-osmolality and hyponatremia; I10 Essential (primary) hypertension; D50.8 Other iron deficiency anemias; E83.42 Hypomagnesemia; W06.XXXA Fall from bed, initial encounter; E87.6 Hypokalemia; Z85.89 Personal history of malignant neoplasm of other organs and systems; D50.9 Iron deficiency anemia, unspecified; Z79.890 Hormone replacement therapy; Z85.819 Personal history of malignant neoplasm of unspecified site of lip, oral cavity, and pharynx; Z79.899 Other long term (current) drug therapy; F32.A Depression, unspecified; G47.00 Insomnia, unspecified; F41.9 Anxiety disorder, unspecified; E78.5 Hyperlipidemia, unspecified; G89.29 Other chronic pain; E78.00 Pure hypercholesterolemia, unspecified; F43.10 Post-traumatic stress disorder, unspecified; Z20.822 Contact with and (suspected) exposure to COVID-19
CPT/HCPCS: 36415; 70450; 71045; 72125; 80053; 80305; 80307; 81003; 82550; 82728; 83550; 83605; 83735; 83880; 84100; 84443; 84484; 85025; 93005; 96360; 99285; A9270 ×3; J7030; U0002; 36430; 36600; 71275; 71275-26; 74230; 74230-26; 80048; 80202; 82272; 82803; 85014; 85018; 85045; 86850; 86900; 86901; 86920; 90792-GT; 92522-GN; 92526-GN; 92610-GN; 92611-GN; 93010; 94640; 97110-GP; 97112-GP; 97116-GP; 97140-GP; 97163-GP; 97165-GO; 97167-GO; 97530-GP; 97535-GP; 97542-GP; C9113; J0456; J1650; J1756; J1885; J2270; J2543; J3370; J3475; J3480; J3490; J7050; J7120; J7121; J7620-GY; P9016; Q0138; Q9967

== ENCOUNTER 2022-07-09 02:38 | Inpatient (IN) | payer MEDICARE ==
[2022-07-09] MEDS ORDERED: Acetaminophen/oxyCODONE 325-10 MG Tab PO ONE ×2 (03:03→07:34)
[2022-07-09] MEDS ORDERED: fentaNYL 50 MCG/ML SDV IVPUSH ONE (04:46)
[2022-07-09] MEDS ORDERED: Sodium Chloride 0.9% 1,000 ML IV SCH (05:00)
[2022-07-09 05:24] LABS: BLOOD UREA NITROGEN,BUN 30 mg/dL (7.0-18.0); CARBON DIOXIDE,CO2 29.6 mmol/L (21.0-32.0); CHLORIDE,CL 99 mmol/L (98-107); GLUCOSE RANDOM 88 mg/dL (74-106); POTASSIUM,K 4.3 mmol/L (3.5-5.1); SODIUM,NA 138 mmol/L (136-148)
[2022-07-09 05:31] LABS: ESTIMATED GFR 68 mL/min (>60)
[2022-07-09 07:03] VITALS: BP 141/81
[2022-07-09] MEDS ORDERED: HYDROmorphone 1 MG/ML Syringe IVPUSH ONE (07:43)
[2022-07-09] MEDS ORDERED: HYDROmorphone 1 MG/ML Syringe IVPUSH PRN (10:41)
[2022-07-09 13:16] VITALS: PULSE 73
== END 2022-07-09 11:35 | DRG 536 ==
LOC: MW.ED 02:38 → MW.MS 05:56
PROVIDERS: ADMIT Internal Medicine; ATTEND Internal Medicine
DX: S72.001A Fracture of unspecified part of neck of right femur, initial encounter for closed fracture (principal); S72.144A Nondisplaced intertrochanteric fracture of right femur, initial encounter for closed fracture; Z20.822 Contact with and (suspected) exposure to COVID-19; E78.00 Pure hypercholesterolemia, unspecified; I10 Essential (primary) hypertension; F43.10 Post-traumatic stress disorder, unspecified; Z79.890 Hormone replacement therapy; Z87.891 Personal history of nicotine dependence; Z93.1 Gastrostomy status; Z79.899 Other long term (current) drug therapy; W19.XXXA Unspecified fall, initial encounter
CPT/HCPCS: 36415; 71045; 72192; 73502; 80053; 80307; 84443; 84484; 85025; 85610; 85730; A9270; J3010; J7030; U0002; 86850; 86900; 86901; 86920; 93005; 96361; 96374; 99285-25; J1170